=== PATIENT | male | born 1935 | race Caucasian/White ===

== ENCOUNTER → 2017-03-28 | Outpatient (CLI) | payer MEDICARE, BC ==
[2017-03-28 09:59] LABS: Blood Urea Nitrogen 17 mg/dL (9-20); Non-African American GFR(MDRD) >60 (>60 ml/min/1.73 sqM)
--- NOTE | 2017-03-28 11:58 | XR ---
EXAMINATION TYPE: XR chest 2V DATE OF EXAM: 03/28/2017 COMPARISON: 09/11/2010 HISTORY: Shortness of breath TECHNIQUE: Frontal and lateral views of the chest are obtained. FINDINGS: Scattered senescent parenchymal changes noted. Hyperinflation compatible with COPD. No evidence for infiltrate. No evidence for atelectasis. Heart size is stable. Mediastinal structures are stable and grossly unremarkable. No evidence for hilar prominence. Degenerative changes dorsal spine. IMPRESSION: 1. No evidence for acute pulmonary disease.
--- NOTE | 2017-03-28 12:07 | CT ---
EXAMINATION TYPE: CT brain wo/w con DATE OF EXAM: 03/28/2017 COMPARISON: NONE HISTORY: near syncope CT DLP: 2108.4mGycm CONTRAST: CT scan of the head is performed without and with IV Contrast, patient injected with 100 mL of Omnipa que 300. Unenhanced followed by contrast enhanced CT of the brain is submitted for evaluation. The ventricles are midline. [id number] generalized atrophic change. Septum pellucidum and vergae. There is n o evidence for intracranial hemorrhage or extra-axial collection. No mass effects are identified. V isualized bony calvarium is intact. Contrast is administered and no enhancing lesions are detected. No pathologic enhancement is identified. If symptoms persist consider MRI. IMPRESSION: 1. No acute intracranial process or enhancing lesion seen.
--- NOTE | 2017-03-28 12:47 | ECHOF ---
Referral Reason:R5 syncope MEASUREMENTS -------- HEIGHT: 185.4 cm WEIGHT: 87.1 kg BP: 175/75 RVIDd: 2.9 cm (< 3.3) IVSd: 1.2 cm (0.6 - 1.1) LVIDd: 4.4 cm (3.9 - 5.3) LVPWd: 1.2 cm (0.6 - 1.1) IVSs: 1.5 cm LVIDs: 2.9 cm LVPWs: 1.6 cm LA Diam: 3.2 cm (2.7 - 3.8) LAESV Index (A-L): 29.10 ml/m Ao Diam: 3.9 cm (2.0 - 3.7) AV Cusp: 2.1 cm (1.5 - 2.6) MV EXCURSION: 13.991 mm (> 18.000) MV EF SLOPE: 49 mm/s (70 - 150) EPSS: 0.6 cm MV E Brent: 0.94 m/s MV DecT: 381 ms MV A Brent: 1.12 m/s MV E/A Ratio: 0.84 AR PHT: 713 ms RAP: 5.00 mmHg RVSP: 28.56 mmHg FINDINGS -------- Sinus rhythm. This was a technically good study. The left ventricular size is normal. There is borderline concentric left ventricular hypertrophy. Overall left ventricular systolic function is normal with, an EF between 55 - 60 %. The right ventricle is normal in size. LA is midly dilated 29-33ml/m2. The right atrium is normal in size. There is mild aortic valve sclerosis. Trace to mild aortic regurgitation. The mitral valve leaflets are mildly thickened. Mild mitral regurgitation is present. Mild tricuspid regurgitation present. Right ventricular systolic pressure is normal at < 35 mmHg. There is no pulmonic regurgitation present. The aortic root is dilated measuring 3.9cm. Normal inferior vena cava with normal inspiratory collapse consistent with estimated right atrial pressure of 5 mmHg. There is no pericardial effusion. CONCLUSIONS -------- 1. Sinus rhythm. 2. Mild tricuspid regurgitation present. 3. Right ventricular systolic pressure is normal at < 35 mmHg. 4. There is no pulmonic regurgitation present. 5. The aortic root is dilated measuring 3.9cm. 6. Normal inferior vena cava with normal inspiratory collapse consistent with estimated right atrial pressure of 5 mmHg. 7. There is no pericardial effusion. 8. This was a technically good study. 9. There is borderline concentric left ventricular hypertrophy. 10. Overall left ventricular systolic function is normal with, an EF between 55 - 60 %. 11. LA is midly dilated 29-33ml/m2. 12. There is mild aortic valve sclerosis. 13. Trace to mild aortic regurgitation. 14. The mitral valve leaflets are mildly thickened. 15. Mild mitral regurgitation is present. TOUR LEADER: Dena Allison RDCS
--- NOTE | 2017-03-30 09:47 | EEG ---
DATE OF EE03/28/2017 REFERRING PHYSICIAN: Dr. Schrader INTERPRETING PHYSICIAN: Dr. Poli Enamorado ELECTROENCEPHALOGRAPHIC EXAMINATION REPORT: INDICATIONS FOR EXAMINATION: This patient is an 81-year-old male being evaluated for episodes of difficulty reading. Patient also with mild confusion. AGE: 81. EEG FINDINGS: A routine 21-channel, awake digital EEG recording was accomplished utilizing the 10-20 International System with bipolar and referential montages. The background activity in the most alert, resting state consists of a low to medium amplitude, fairly well developed and well sustained 6 to 7 Hz activity over the posterior head regions. This posterior rhythm attenuates to eye opening. There is a small amount of low amplitude 18-20 Hz beta activity seen maximally over the anterior head regions. Muscle and movement artifact was observed on a few occasions during the tracing. Hyperventilation was not performed. Photic stimulation at flash frequencies of 2 to 30 Hz produced a minimal occipital driving response. No epileptiform discharges were seen. IMPRESSION: This EEG is mildly abnormal in a diffuse fashion due to slight slowing of the EEG background. The EEG failed to reveal any focal, lateralized, or epileptiform abnormalities. Clinical correlation is recommended. [facility]
== END | disposition home or self-care (01) ==
LOC: NEUROMAIN 09:20
PROVIDERS: ATTEND Family Medicine
DX: R55 Syncope and collapse (principal)
CPT/HCPCS: 95819; 93306; 82565; 84520; 71020; 70470; 36415; Q9967

== ENCOUNTER → 2017-09-02 | Outpatient (CLI) | payer MEDICARE, BC ==
--- NOTE | 2017-09-02 17:07 | US ---
EXAMINATION TYPE: US carotid duplex BILAT DATE OF EXAM: 09/02/2017 COMPARISON: NONE CLINICAL HISTORY: 81-year-old male G45.9 Transient ischemic attack. Dizziness. TECHNIQUE: Carotid duplex ultrasound examination. Indirect Doppler criteria was utilized. FINDINGS: Willoughby scale images demonstrate mild to moderate atherosclerotic change at both bifurcations. EXAM MEASUREMENTS: RIGHT: Peak Systolic Velocity (PSV) cm/sec ----- Right CCA: 77.9 ----- Right ICA: 130.2 ----- Right ECA: 172.6 ICA/CCA ratio: 1.7 RIGHT: End Diastole cm/sec ----- Right CCA: 8.1 ----- Right ICA: 18.7 ----- Right ECA: 11.0 LEFT: Peak Systolic Velocity (PSV) cm/sec ----- Left CCA: 78.8 ----- Left ICA: 234.7 ----- Left ECA: 90.1 ICA/CCA ratio: 3.0 LEFT: End Diastole cm/sec ----- Left CCA: 10.1 ----- Left ICA: 37.5 ----- Left ECA: 11.1 VERTEBRALS (direction of flow): Right Vertebral: Antegrade Left Vertebral: Antegrade Rhythm: Normal Assistant Grocery Store Manager notes: Mild/moderate amount of plaque visualized bilaterally. Elevated velocities visuali zed in the right proximal ICA, left proximal, mid, distal ICA. IMPRESSION: 1. Measurements suggest moderate (50-69%), possible severe (> 70%) atherosclerotic narrowing at the l eft ICA. 2. There could be mild to moderate narrowing at the right ICA. 3. Further evaluation with CT angiography can be considered. Criteria for Assigning % of Stenosis / Diameter reduction (Estimation based on the indirect measurements of the internal carotid artery velocities (ICA PSV). 1. Normal (no stenosis)=ICA PSV < 125 cm/s: ratio < 2.0: ICA EDV<40 cm/s. 2. Less than 50% stenosis=ICA PSV < 125 cm/s: ratio < 2.0: ICA EDV<40 cm/s. 3. 50 to 69% stenosis=ICA PSV of 125 to 230 cm/s: ration 2.0 ? 4.0: ICA EDV 40-100 cm/s. 4. Greater than 70% stenosis to near occlusion= ICA PSV > 230 cm/s: ratio > 4.0: ICA EDV > 100 cm/s. 5. Near occlusion= ICA PSV velocities may be low or undetectable: variable ratio and ICA EDV. 6. Total occlusion=unable to detect flow.
== END | disposition home or self-care (01) ==
LOC: RADUSWWP 13:31
PROVIDERS: ATTEND Family Medicine
DX: G45.9 Transient cerebral ischemic attack, unspecified (principal)
CPT/HCPCS: 93880

== ENCOUNTER → 2017-09-11 | Outpatient (CLI) | payer MEDICARE, BC ==
--- NOTE | 2017-09-11 14:09 | MR ---
EXAMINATION TYPE: MR brain wo con DATE OF EXAM: 09/11/2017 COMPARISON: CT dated 03/28/2017. HISTORY: Transient cerebral ischemic attack, memory loss TECHNIQUE: Multiplanar, multisequence images of the brain and brainstem is performed without intravenous contras t. FINDINGS: Diffusion weighted images demonstrate no evidence of a recent infarct or other diffusion ab normality. Incidental note is made of a cavum septum pellucidum et verge. There is no extra-axial fl uid collection. Scattered foci of periventricular and subcortical T2/flair hyperintensities are seen, most compatible with sequela of chronic microangiopathy. This is mild to moderate burden given the p atient's age. Multiple prominent perivascular spaces are seen inferior to the basal ganglia. The harleen tricular system and cisternal spaces are symmetrically prominent compatible with age-related mild los s. Midline structures demonstrate normal morphology. Incidental mode is made of a 6 mm pineal gland cyst . The craniocervical junction appears within normal limits. The globes are intact. Left ocular lenses surgically absent. Major intracranial flow voids are maintained. Moderate amount of fluid is seen within the right mastoid air cells and small amount of fluid within the left mastoid air cells. Mild mucosal thickening within the maxillary sinuses and moderate ethmoid mucosal thickening as well as mild frontal sinus mucosal thickening are seen. Sphenoid sinuses remai n well aerated. IMPRESSION: 1. No evidence of acute infarct, midline shift or mass effect. 2. Mild to moderate burden nonspecific white matter change, likely on the basis of chronic microangio jelani. 3. Moderate paranasal sinus disease and fluid within the mastoid air cells. Correlate clinically for mastoid pain to further evaluate for mastoiditis. 4. 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
== END | disposition home or self-care (01) ==
LOC: RADMRIMAIN 13:01
PROVIDERS: ATTEND Family Medicine
DX: R90.82 White matter disease, unspecified (principal); E34.8 Other specified endocrine disorders; Z86.73 Personal history of transient ischemic attack (TIA), and cerebral infarction without residual deficits
CPT/HCPCS: 70551

== ENCOUNTER → 2017-10-20 | Outpatient (CLI) | payer MEDICARE, BC ==
[2017-10-20 13:14] LABS: Anion Gap 10 mmol/L; Blood Urea Nitrogen 23 mg/dL (9-20); Calcium 9.9 mg/dL (8.4-10.2); Carbon Dioxide 28 mmol/L (22-30); Chloride 101 mmol/L (98-107); Glucose 96 mg/dL (74-99); Potassium 4.8 mmol/L (3.5-5.1); Sodium 139 mmol/L (137-145)
[2017-10-20 19:04] LABS: Vitamin D 25 Hydroxy 17.8 ng/mL (30.0-100.0)
== END | disposition home or self-care (01) ==
LOC: LABWHC1 12:04
PROVIDERS: ATTEND Psychiatry & Neurology Neurology
DX: R41.3 Other amnesia (principal)
CPT/HCPCS: 36415; 80048; 82306; 82607

== ENCOUNTER → 2017-10-29 | Outpatient (CLI) | payer MEDICARE, BC ==
--- NOTE | 2017-10-29 17:22 | CT ---
EXAMINATION TYPE: CT angio neck DATE OF EXAM: 10/29/2017 COMPARISON: NONE HISTORY: 82-year-old male Carotid stenosis of left ICA TECHNIQUE: Contiguous axial scanning of the neck performed with IV Contrast, patient injected with 65 mL of Omnipaque 350. Coronal/sagittal MIP reconstructions performed. 3-D reconstructions generated o n a dedicated independent workstation. CT DLP: 520 mGycm Automated exposure control for dose reduction was used. 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 There is conventional arch vessel branching anatomy with mild atherosclerotic calcifications of the proximal great vessels. Uurg-jh-yogoepis atherosclerotic narrowing at the origin of the right vertebral artery. There may be a moderate atherosclerotic narrowing at the origin of the left vertebral artery with focal tortuosity of the proximal aspect of the vertebral artery. The right common carotid artery is patent. Mild atelectatic calcifications in the upper common caroti d artery. Moderate arthroscopic calcifications at the right carotid bifurcation and within the caroti d bulb. Changes result in a borderline moderate narrowing at the carotid bulb (approximately 53% sten osis). The bifurcation is located approximately 3.8 cm below the angle of the mandible. There is moderate atherosclerotic change at the left carotid bifurcation and carotid bulb but with ci rcumferential plaque at the proximal left ICA causing a severe, greater than 70% focal stenosis just above the level of the carotid bulb. The bifurcation is located approximately 4.7 cm below the angle of the mandible. IMPRESSION: 1. MODERATE ATHEROSCLEROTIC CHANGE AT BOTH BIFURCATIONS. THERE IS CIRCUMFERENTIAL PLAQUE CAUSING A SE KRYSTAL (GREATER THAN 70%) FOCAL STENOSIS OF THE PROXIMAL LEFT ICA JUST ABOVE THE CAROTID BULB. 2. BORDERLINE MODERATE (APPROXIMATELY 53%) STENOSIS OF THE RIGHT CAROTID BULB. 3. MILD TO MODERATE ATHEROSCLEROTIC NARROWING AT THE ORIGIN OF THE RIGHT VERTEBRAL ARTERY AND PROBABL Y MODERATE AT THE ORIGIN OF THE LEFT VERTEBRAL ARTERY. 4. 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
== END | disposition home or self-care (01) ==
LOC: RADCTMAIN 16:20
PROVIDERS: ATTEND Psychiatry & Neurology Neurology
DX: I65.23 Occlusion and stenosis of bilateral carotid arteries (principal); I65.03 Occlusion and stenosis of bilateral vertebral arteries
CPT/HCPCS: 70498; Q9967

== ENCOUNTER → 2017-12-11 | Outpatient (CLI) | payer MEDICARE, BC ==
--- NOTE | 2017-12-11 20:37 | MR ---
EXAMINATION TYPE: MR brain wo/w con DATE OF EXAM: 12/11/2017 COMPARISON: 09/11/2017 HISTORY: 82-year-old male Memory Loss, cerebral infarction due to unspecified occlusion. TECHNIQUE: Multiplanar, multisequence images of the brain and brainstem were acquired before and aft er administration of 9 mL IV Gadavist. Diffusion weighted imaging is performed. FINDINGS: No evidence for acute infarction, hemorrhage, mass, mass effect, midline shift, herniation, effacemen t of basal cisterns, or extra-axial fluid collection. Moderate generalized supratentorial volume loss again seen. No hydrocephalus. There is normal variati on with persistent cavum septum pellucidum. Major intracranial flow voids are intact. T2/FLAIR weighted sequences show similar mild to moderate patchy white white matter change especially in the periventricular and deep white matter regions and a few scattered foci in the subcortical reg ion suggestive right temporal lobe. Midline structures demonstrate normal morphology. 9 mm pineal gland cyst again incidentally noted. T he craniocervical junction is normal. Post contrast images demonstrate no evidence of pathologic enhancement. Dural venous sinuses are pat ent. Moderate mucosal thickening persists throughout the ethmoid air cells, maxillary sinuses, and frontal sinuses. Trapped fluid within the right greater than left mastoid air cells redemonstrated. IMPRESSION: 1. Stable moderate generalized atrophy. Also, stable chronic T2 bright white matter change with mild- to-moderate overall burden, nonspecific, likely relating to changes of chronic small vessel ischemic disease. 2. No acute intracranial abnormality or abnormal enhancing lesion seen. 3. Continued moderate chronic pansinusitis. 4. Similar trapped fluid in the right greater than left mastoid air cells; correlate for any mastoid pain to exclude mastoiditis.
== END | disposition home or self-care (01) ==
LOC: RADMRIMAIN 10:04
PROVIDERS: ATTEND Psychiatry & Neurology Neurology
DX: G31.9 Degenerative disease of nervous system, unspecified (principal); R90.82 White matter disease, unspecified; I63.232 Cerebral infarction due to unspecified occlusion or stenosis of left carotid arteries
CPT/HCPCS: 82565; 70553; 36415; A9581

== ENCOUNTER → 2019-11-09 | Outpatient (CLI) | payer MEDICARE, BC ==
--- NOTE | 2019-11-10 09:00 | ECHOF ---
Referral Reason:R07.9 atypical chest pain MEASUREMENTS -------- HEIGHT: 185.4 cm WEIGHT: 94.3 kg BP: RVIDd: 3.4 cm (< 3.3) IVSd: 1.6 cm (0.6 - 1.1) LVIDd: 3.3 cm (3.9 - 5.3) LVPWd: 1.5 cm (0.6 - 1.1) IVSs: 2.0 cm LVIDs: 1.8 cm LVPWs: 2.0 cm LAESV Index (A-L): 32.87 ml/m Ao Diam: 3.8 cm (2.0 - 3.7) AV Cusp: 2.5 cm (1.5 - 2.6) MV EXCURSION: 12.842 mm (> 18.000) MV EF SLOPE: 95 mm/s (70 - 150) EPSS: 0.5 cm MV E Brent: 0.76 m/s MV DecT: 337 ms MV A Brent: 1.24 m/s MV E/A Ratio: 0.61 RAP: 5.00 mmHg RVSP: 20.98 mmHg FINDINGS -------- Sinus rhythm. This was a technically good study. The left ventricular size is normal. There is moderate concentric left ventricular hypertrophy. O verall left ventricular systolic function is normal with, an EF between 55 - 60 %. The diastolic fi lling pattern is normal for the age of the patient 12.81. The right ventricle is mildly enlarged. LA is midly dilated 29-33ml/m2. The right atrial size is normal. Interatrial and interventricular septum intact. The aortic valve is trileaflet and appears structurally normal. There is mild aortic valve sclerosi s. Trace amount of aortic regurgitation. There is no evidence of aortic stenosis. Mild mitral annular calcification present. Mild mitral regurgitation is present. Mild tricuspid regurgitation present. There is no evidence of pulmonary hypertension. The right v entricular systolic pressure, as measured by Doppler, is 20.98mmHg. There is no pulmonic regurgitation present. The aortic root size is normal. IVC Not well visulized. There is no pericardial effusion. CONCLUSIONS -------- 1. Sinus rhythm. 2. This was a technically good study. 3. The left ventricular size is normal. 4. There is moderate concentric left ventricular hypertrophy. 5. Overall left ventricular systolic function is normal with, an EF between 55 - 60 %. 6. The diastolic filling pattern is normal for the age of the patient 12.81 7. The right ventricle is mildly enlarged. 8. LA is midly dilated 29-33ml/m2. 9. The right atrial size is normal. 10. Interatrial and interventricular septum intact. 11. The aortic valve is trileaflet and appears structurally normal. 12. There is mild aortic valve sclerosis. 13. Trace amount of aortic regurgitation. 14. There is no evidence of aortic stenosis. 15. Mild mitral annular calcification present. 16. Mild mitral regurgitation is present. 17. Mild tricuspid regurgitation present. 18. There is no evidence of pulmonary hypertension. 19. The right ventricular systolic pressure, as measured by Doppler, is 20.98mmHg. 20. There is no pulmonic regurgitation present. 21. The aortic root size is normal. 22. IVC Not well visulized. 23. There is no pericardial effusion. LAW FIRM CONSULTANT: Dena Allison RDCS
--- NOTE | 2019-11-10 11:33 | EST ---
EXERCISE STRESS AGE: 84 SEX: Male HT: 73" WT: 208 pounds PROTOCOL: Erik STAGE: I DURATION OF EXERCISE: 3 minutes HEART RATE REST: 68 BLOOD PRESSURE REST: 165/84 MAXIMUM HEART RATE ACHIEVED: 103 MAXIMUM BLOOD PRESSURE: 182/75 85% MPHR: 114 100% MPHR: 134 METS: 4.4 INDICATIONS: Atypical chest pain. CLINICAL INFORMATION: Exercise stress study is performed. Patient was exercised for a total period of 3 minutes. The peak heart rate of 103 was achieved. Maximum blood pressure of 182/75 mmHg was noted. Test was terminated because the patient got tired. The patient did not achieve 85% of the age predicted heart rate. The resting EKG shows normal sinus rhythm with normal UT interval and QRS duration and normal ST-T waves. No ST-segment depression suggestive of ischemia is noted. FINAL IMPRESSION: 1. There is no evidence of any ST-segment depression to suggest ischemia up to the 75% of the age predicted heart rate. 2. Patient's exercise tolerance is below average. MMODL / IJN: [id number] /
== END | disposition home or self-care (01) ==
LOC: RADNMMAIN 10:15
PROVIDERS: ATTEND Family Medicine
DX: I08.3 Combined rheumatic disorders of mitral, aortic and tricuspid valves (principal)
CPT/HCPCS: 93017; 93306

== ENCOUNTER 2020-09-14 15:28 | Inpatient (IN) | payer MEDICARE, BC ==
[2020-09-14] MEDS ORDERED: SODIUM CHLORIDE 0.9% 500 ML 500 ML IV STA (15:42)
[2020-09-14 15:49] LABS: Glucose,Whole Blood 114 mg/dL (75-99)
--- NOTE | 2020-09-14 15:58 | ED ---
General Adult HPI - General Chief complaint: Neuro Symptoms/Deficit Stated complaint: poss stoke/40mins Time Seen by Provider: 09/14/20 15:40 Source: patient, RN notes reviewed, old records reviewed Mode of arrival: ambulatory Limitations: no limitations - History of Present Illness Initial comments: 84-year-old male presenting for evaluation of confusion, slurred speech and difficulty finding words. Symptoms began 40 minutes prior to arrival at appr oximately 1500. He is accompanied by his son who does state that his symptoms have improved since the onset. He denied any limb weakness or numbness. Denied headache. No anticoagulation. He denies any facial numbness or weakness. Patient self has no complaints, no chest pain, no dyspnea, no fever. - Related Data Home Medications Medication Instructions Recorded Confirmed Acetaminophen Tab [Tylenol] 325 mg PO HS 09/14/20 09/14/20 Ascorbic Acid [Vitamin C] 500 mg PO DAILY 09/14/20 09/14/20 Aspirin EC [Ecotrin Low Dose] 81 mg PO DAILY 09/14/20 09/14/20 Aspirin EC [Ecotrin Low Dose] 81 mg PO ONCE PRN 09/14/20 09/14/20 Cholecalciferol [Vitamin D3 (25 1,000 unit PO DAILY 09/14/20 09/14/20 Mcg = 1000 Iu)] Fish Oil/Dha/Epa [Fish Oil 1,200 1 cap PO DAILY 09/14/20 09/14/20 mg Fish Oil] Melatonin 3 mg PO HS 09/14/20 09/14/20 Multivit-Min/FA/Lycopen/Lutein 0.5 tab PO DAILY 09/14/20 09/14/20 [Centrum Silver Men Tablet] Xanthium /Bilberry Extract 1 cap PO DAILY 09/14/20 09/14/20 diphenhydrAMINE HCL [Benadryl] 50 mg PO DAILY PRN 09/14/20 09/14/20 Allergies Allergy/AdvReac Type Severity Reaction Status Date / Time No Known Allergies Allergy Verified 09/14/20 16:32 Review of Systems ROS Statement: Those systems with pertinent positive or pertinent negative responses have been documented in the HPI. ROS Other: All systems not noted in ROS Statement are negative. Past Medical History Past Medical History: Cancer, CVA/TIA History of Any Multi-Drug Resistant Organisms: None Reported Additional Past Surgical History / Comment(s): bladder biopsy Past Psychological History: Anxiety Smoking Status: Former smoker Past Alcohol Use History: Occasional Past Drug Use History: None Reported General Exam Limitations: no limitations General appearance: alert, in no apparent distress Head exam: Present: atraumatic, normocephalic Eye exam: Present: normal appearance, PERRL ENT exam: Present: mucous membranes dry Neck exam: Present: normal inspection Respiratory exam: Present: normal lung sounds bilaterally. Absent: respiratory distress Cardiovascular Exam: Present: regular rate, normal rhythm GI/Abdominal exam: Present: soft. Absent: distended, tenderness, guarding Extremities exam: Present: normal inspection, normal capillary refill. Absent: pedal edema Neurological exam: Present: alert, oriented X3, CN II-XII intact. Absent: motor sensory deficit (NIH is 0 at the time my initial evaluation) Psychiatric exam: Present: normal affect, normal mood Skin exam: Present: warm, dry, intact. Absent: cyanosis, diaphoretic Course Vital Signs 09/14/20 09/14/20 09/14/20 15:31 16:00 16:15 Temperature 99.3 F Pulse Rate 81 68 62 Respiratory 20 18 18 Rate Blood Pressure 177/73 157/75 172/77 O2 Sat by Pulse 97 98 98 Oximetry 09/14/20 09/14/20 09/14/20 16:30 16:45 17:00 Temperature Pulse Rate 61 60 61 Respiratory 18 16 18 Rate Blood Pressure 184/84 173/88 179/81 O2 Sat by Pulse 97 97 97 Oximetry - Reevaluation(s) Reevaluation #1: 09/14/20 17:14 Patient remains NIH of 0 EKG Findings - EKG Comments: EKG Findings:: EKG: Normal sinus rhythm, rate 64, MA interval 196, QRS duration 84, QTC 416, artifact in V1 and V2, Medical Decision Making - Medical Decision Making 84-year-old male presenting with dysarthria, aphasia which is resolved at the time of arrival. He is taken to CT as a code stroke. CT is negative for intrac ranial hemorrhage, patient given aspirin and IV fluid. He has a CT angiography which is negative for intracranial occlusion, no aneurysm, does show stenosis in the bilateral carotid arteries which is known to this patient. He remains in NIH of 0 suggestive of a TIA. He will be admitted for further evaluation including neurology consultation, MRI, echo. - Lab Data Result diagrams: 09/14/20 15:56 09/14/20 15:56 Lab Results 09/14/20 09/14/20 09/14/20 Range/Units 15:46 15:56 15:56 WBC 6.8 (3.8-10.6) k/uL RBC 3.81 L (4.30-5.90) m/uL Hgb 12.8 L (13.0-17.5) gm/dL Hct 36.8 L (39.0-53.0) % MCV 96.6 (80.0-100.0) fL MCH 33.7 (25.0-35.0) pg MCHC 34.9 (31.0-37.0) g/dL RDW 12.8 (11.5-15.5) % Plt Count 199 (150-450) k/uL MPV 6.9 Neutrophils % 69 % Lymphocytes % 17 % Monocytes % 6 % Eosinophils % 5 % Basophils % 1 % Neutrophils # 4.7 (1.3-7.7) k/uL Lymphocytes # 1.2 (1.0-4.8) k/uL Monocytes # 0.4 (0-1.0) k/uL Eosinophils # 0.4 (0-0.7) k/uL Basophils # 0.1 (0-0.2) k/uL PT 10.1 (9.0-12.0) sec INR 0.9 (<1.2) APTT 22.7 (22.0-30.0) sec Sodium (137-145) mmol/L Potassium (3.5-5.1) mmol/L Chloride (98-107) mmol/L Carbon Dioxide (22-30) mmol/L Anion Gap mmol/L BUN (9-20) mg/dL Creatinine (0.66-1.25) mg/dL Est GFR (CKD-EPI)AfAm (>60 ml/min/1.73 sqM) Est GFR (CKD-EPI)NonAf (>60 ml/min/1.73 sqM) Glucose (74-99) mg/dL POC Glucose (mg/dL) 114 H (75-99) mg/dL POC Glu Patient Flow Coordinator ID Yolie Hall Calcium (8.4-10.2) mg/dL Total Bilirubin (0.2-1.3) mg/dL AST (17-59) U/L ALT (4-49) U/L Alkaline Phosphatase (38-126) U/L Troponin I (0.000-0.034) ng/mL Total Protein (6.3-8.2) g/dL Albumin (3.5-5.0) g/dL 09/14/20 09/14/20 Range/Units 15:56 15:56 WBC (3.8-10.6) k/uL RBC (4.30-5.90) m/uL Hgb (13.0-17.5) gm/dL Hct (39.0-53.0) % MCV (80.0-100.0) fL MCH (25.0-35.0) pg MCHC (31.0-37.0) g/dL RDW (11.5-15.5) % Plt Count (150-450) k/uL MPV Neutrophils % % Lymphocytes % % Monocytes % % Eosinophils % % Basophils % % Neutrophils # (1.3-7.7) k/uL Lymphocytes # (1.0-4.8) k/uL Monocytes # (0-1.0) k/uL Eosinophils # (0-0.7) k/uL Basophils # (0-0.2) k/uL PT (9.0-12.0) sec INR (<1.2) APTT (22.0-30.0) sec Sodium 136 L (137-145) mmol/L Potassium 4.6 (3.5-5.1) mmol/L Chloride 102 (98-107) mmol/L Carbon Dioxide 26 (22-30) mmol/L Anion Gap 8 mmol/L BUN 26 H (9-20) mg/dL Creatinine 1.04 (0.66-1.25) mg/dL Est GFR (CKD-EPI)AfAm 75 (>60 ml/min/1.73 sqM) Est GFR (CKD-EPI)NonAf 65 (>60 ml/min/1.73 sqM) Glucose 113 H (74-99) mg/dL POC Glucose (mg/dL) (75-99) mg/dL POC Glu Patient Flow Coordinator ID Calcium 9.9 (8.4-10.2) mg/dL Total Bilirubin 0.3 (0.2-1.3) mg/dL AST 27 (17-59) U/L ALT 23 (4-49) U/L Alkaline Phosphatase 73 (38-126) U/L Troponin I <0.012 (0.000-0.034) ng/mL Total Protein 7.3 (6.3-8.2) g/dL Albumin 4.2 (3.5-5.0) g/dL Critical Care Time Critical Care Time: Yes Total Critical Care Time: 35 Disposition Clinical Impression: Transient cerebral ischemia Disposition: ADMITTED IP TO THIS [facility] Condition: Stable Is patient prescribed a controlled substance at d/c from ED?: No Referrals: Alan Schrader DO [Primary Care Provider] - 1-2 days Decision to Admit Reason: Admit from EC Decision Date: 09/14/20 Decision Time: 17:15
[2020-09-14 16:03] LABS: Basophils # (A) 0.1 k/uL (0-0.2); Basophils % (A) 1 %; Eosinophils # (A) 0.4 k/uL (0-0.7); Eosinophils % (A) 5 %; HCT 36.8 % (39.0-53.0); HGB 12.8 gm/dL (13.0-17.5); Lymphocytes # (A) 1.2 k/uL (1.0-4.8); Lymphocytes % (A) 17 %; MCH 33.7 pg (25.0-35.0); MCHC 34.9 g/dL (31.0-37.0); MCV 96.6 fL (80.0-100.0); Mean Platelet Volume 6.9; Monocytes # (A) 0.4 k/uL (0-1.0); Monocytes % (A) 6 %; Neutrophils # (A) 4.7 k/uL (1.3-7.7); Neutrophils % (A) 69 %; Platelet Count 199 k/uL (150-450); RBC 3.81 m/uL (4.30-5.90); RDW 12.8 % (11.5-15.5); WBC 6.8 k/uL (3.8-10.6)
--- NOTE | 2020-09-14 16:11 | CT ---
EXAMINATION TYPE: CT brain wo con for TPA DATE OF EXAM: 09/14/2020 COMPARISON: 03/28/2017 HISTORY: 84-year-old male Difficulty with speech. History of TIA. TECHNIQUE: Examination was done in axial plane without intravenous contrast. Coronal and sagittal r econstructions performed. CT DLP: 1161.8 mGycm Automated exposure control for dose reduction was used. FINDINGS: There is no evidence of acute intracranial hemorrhage, acute ischemic changes, mass, mass-effect, or extra-axial fluid collection. There is no effacement of cerebral sulci or basal subarachnoid cister ns. There is no hydrocephalus. There is no midline shift. Willoughby-white matter distinction is preserv ed. Moderate generalized supratentorial volume loss Some air within the superior sagittal sinus. Normal variation persistent CSP. Kfry-[id number]-[id number] white matter hypodensities in both cerebral hemispheres. Old lacunar infarct left basal ganglia. Moderate mucosal thickening within the ethmoid air cells. Mild mucosal thickening right frontal sinu s. Small amount of fluid within the inferior right mastoid air cells. Orbits and globes are intact. IMPRESSION: 1. Moderate cerebral atrophy and changes of chronic small vessel ischemic disease. 2. Some air within the superior sagittal sinus may have been introduced during peripheral line placem ent. Correlate to exclude IVDA. Otherwise, no acute intracranial abnormality seen. 3. Moderate chronic ethmoid sinus disease. Some trapped fluid in the inferior right mastoid air cells . Correlate for any mastoid pain to exclude mastoiditis.
[2020-09-14 16:16] LABS: INR 0.9 (<1.2); Partial Thromboplastin Time 22.7 sec (22.0-30.0); Prothrombin Time 10.1 sec (9.0-12.0)
[2020-09-14 16:20] LABS: Albumin 4.2 g/dL (3.5-5.0); Calcium 9.9 mg/dL (8.4-10.2); Potassium 4.6 mmol/L (3.5-5.1); Total Bilirubin 0.3 mg/dL (0.2-1.3); Total Protein 7.3 g/dL (6.3-8.2)
[2020-09-14] MEDS ORDERED: SODIUM CHLORIDE 0.9% 1,000 ML IV SCH (17:00)
--- NOTE | 2020-09-14 17:04 | CT ---
EXAMINATION TYPE: CT angio head neck DATE OF EXAM: 09/14/2020 COMPARISON: Correlation CT brain same day HISTORY: 84-year-old male Difficulty with speech. History of TIA. TECHNIQUE: Contiguous axial scanning of the head and neck performed with IV Contrast, patient injecte d with 65 mL of Isovue 370. Coronal/sagittal MIP reconstructions performed. CT DLP: 590.5 mGycm Automated exposure control for dose reduction was used. FINDINGS: NECK: Aneurysmal ascending aorta 4.2 cm and upper descending thoracic aorta 3.4 cm. Mild emphysematous thomas ge in the upper lungs with biapical pleural-parenchymal scarring. Conventional arch vessel branching anatomy. Moderate atherosclerotic calcification of the origin of the left vertebral artery and mild on the rig ht. The vertebral arteries are otherwise patent throughout their course. The right common cardiac artery is patent. Moderate atherosclerotic change at the right bifurcation. The proximal ICA just above the bulb shows a moderate, approximately 50% stenosis. Remainder of the right ICA is patent. The left common carotid artery is patent. Moderate atherosclerotic plaque and calcification at the left bifurcation with mild, just under 50% n arrowing of the proximal left ICA above the carotid bulb. Suspect a 1 cm sebaceous cyst along the upper right paramedian anterior chest wall. Clinically correl ate. HEAD: Mild to moderate atherosclerotic calcifications right vertebral artery without significant narrowing. There is mild narrowing at the distal left vertebral artery. The basilar artery is patent. The posterior circulation is patent. Mild apical scarring calcifications within the carotid siphons without significant narrowing. The ICA s remain patent as does the remainder of the anterior circulation. No aneurysmal changes identified. IMPRESSION: NECK: 1. Moderate atherosclerotic change at both bifurcations. 2. There is moderate approximately 50% stenosis in the proximal right ICA just above the carotid bulb . 3. Mild, under 50% narrowing of the proximal left ICA. HEAD: 1. Scattered atherosclerotic calcification within the carotid siphons and right vertebral artery. Mil d atherosclerotic narrowing distal left vertebral artery. 2. No large vessel intracranial arterial occlusion, significant stenosis, or aneurysmal change is see n.
[2020-09-14] MEDS: ASPIRIN 325 MG TAB PO STA ×2 (20:04→20:09)
[2020-09-14] MEDS ORDERED: ACETAMINOPHEN TAB 325 MG TAB PO SCH (21:00)
[2020-09-14] MEDS ORDERED: MELATONIN 3 MG TABLET PO SCH (21:00)
--- NOTE | 2020-09-14 23:07 | P.HPIM ---
History of Present Illness H&P Date: 09/14/20 Chief Complaint: TIA, severe memory loss, hypertension, hyperlipidemia and h yperglycemia 84-year-old male one of Dr. Childers patient with past medical history of TIA/CVA, hypertension, hyperlipidemia and anxiety disorders who has been doing well has been living with his son since his pass. Patient developed to have episode of confusion and slurred speech and difficulty finding words. Symptoms lasted for about 40 minutes he ended up coming to the emergency depa rtment by ambulance with his family at a time was seen was quite bit confused does not remember why his in the hospital he developed apparently to have severe generalized weakness numbness not been able to express himself with severe abnormal balance and gait not been able to ambulate family ended up calling 911 and brought to demurs department at [facility] where was seen and evaluated his brain CT shows moderate cerebral atrophy with chronic small vessel disease with chronic change consistent with small vessel disease some air within the superior sagittal sinus May been introduced during peripheral line placement along with moderate chronic ethmoid sinus and drainage. CTA of the neck shows moderate atherosclerotic change in both carotid artery with approximately 50% blockage. That value showed normal CBC CMP PT/INR. Patient was admitted to the hospital, will be seen neurology, was start PTOT resume home meds control his blood pressure to keep systolic below 1:30 also was start social service for possible need for help. Review of Systems CONSTITUTIONAL: Well-developed no acute respiratory distress. EYES: No icterus sclerae, no conjunctivitis. EARS, NOSE, MOUTH, THROAT, and FACE: No sore throat, lymphadenopathy, carotid bruits or deformity. RESPIRATORY: Mild shortness of breath no cough or wheezes. CARDIOVASCULAR: No CP, Palpitation, PND, Orthopnea, or angina. GASTROINTESTINAL: No Abd pain, Nausea or vomiting, no Diarrhea or constipation, No GI Bleed, no distention or masses. GENITOURINARY: Negative for Hematuria or UTI, no kidney stones. INTEGUMENT/BREAST: Negative for any muscular injury with mild osteoarthritis.. HEMATOLOGIC/LYMPHATIC: Negative for bleed or purpura. Mild anemia MUSCULOSKELTAL: Negative for Myalgia or arthralgia. Generalized arthralgia NEURLOGICAL: No LOC, Sz or syncope, blurred vision dizziness or abnormality.. BEHAVIORAL/PSYCH: Negative. ENDOCRINE: Negative.CONSTITUTIONAL: Well-developed no acute respiratory distress. Past Medical History Past Medical History: Cancer, CVA/TIA History of Any Multi-Drug Resistant Organisms: None Reported Additional Past Surgical History / Comment(s): bladder biopsy Past Psychological History: Anxiety Smoking Status: Former smoker Past Alcohol Use History: Occasional Past Drug Use History: None Reported - Past Family History Father Family Medical History: Unable to Obtain Medications and Allergies Home Medications Medication Instructions Recorded Confirmed Type Acetaminophen Tab [Tylenol] 325 mg PO HS 09/14/20 09/14/20 History Ascorbic Acid [Vitamin C] 500 mg PO DAILY 09/14/20 09/14/20 History Aspirin EC [Ecotrin Low Dose] 81 mg PO DAILY 09/14/20 09/14/20 History Aspirin EC [Ecotrin Low Dose] 81 mg PO ONCE PRN 09/14/20 09/14/20 History Cholecalciferol [Vitamin D3 (25 1,000 unit PO DAILY 09/14/20 09/14/20 History Mcg = 1000 Iu)] Fish Oil/Dha/Epa [Fish Oil 1,200 1 cap PO DAILY 09/14/20 09/14/20 History mg Fish Oil] Melatonin 3 mg PO HS 09/14/20 09/14/20 History Multivit-Min/FA/Lycopen/Lutein 0.5 tab PO DAILY 09/14/20 09/14/20 History [Centrum Silver Men Tablet] Xanthium /Bilberry Extract 1 cap PO DAILY 09/14/20 09/14/20 History diphenhydrAMINE HCL [Benadryl] 50 mg PO DAILY PRN 09/14/20 09/14/20 History Allergies Allergy/AdvReac Type Severity Reaction Status Date / Time No Known Allergies Allergy Verified 09/14/20 16:32 Physical Exam Vitals: Vital Signs Temp Pulse Resp BP Pulse Ox 09/14/20 18:31 87 18 179/81 96 09/14/20 17:00 61 18 179/81 97 09/14/20 16:45 60 16 173/88 97 09/14/20 16:30 61 18 184/84 97 09/14/20 16:15 62 18 172/77 98 09/14/20 16:00 68 18 157/75 98 09/14/20 15:31 99.3 F 81 20 177/73 97 Intake and Output 09/14/20 09/14/20 09/14/20 06:59 14:59 22:59 Other: Weight 92.986 kg General Appearance: Alert, cooperative, no distress, appears stated age. Slightly confused Neck HEENT: Supple, no lymphadenopathy, no thyroid enlargement, no carotid bruits. Lungs: Clear to auscultation without crackles or wheezes no rhonchi, no deformity. Chest Wall: Chest wall normal expansion with deep inspiration no tenderness and no deformity was found on exam, no costochondral pain or discomfort. Heart: Regular rate and rhythm, S1, S2 normal, no murmur, rub or gallop. Mild arrhythmia with systolic murmur. Back: Symmetric, no curvature, ROM normal, no CVA tenderness. Abdomen: Soft, non-tender, bowel sounds active all four quadrants, no masses, no organomegaly. Extremities: Extremities normal, atraumatic, no cyanosis or edema. Generalized arthralgias especially in the knees. Pulses: 2+ and symmetric. Skin: Skin color, texture, tugor normal, no rashes or lesions. Neurologic: Alert oriented with slight confusion cranial nerves II through XII intact, significant abnormal balance and gait in the right side more than the left side. Results CBC & Chem 7: 09/14/20 15:56 09/14/20 15:56 Labs: Abnormal Lab Results - Last 24 Hours (Table) 09/14/20 09/14/20 09/14/20 Range/Units 15:46 15:56 15:56 RBC 3.81 L (4.30-5.90) m/uL Hgb 12.8 L (13.0-17.5) gm/dL Hct 36.8 L (39.0-53.0) % Sodium 136 L (137-145) mmol/L BUN 26 H (9-20) mg/dL Glucose 113 H (74-99) mg/dL POC Glucose (mg/dL) 114 H (75-99) mg/dL Assessment and Plan Assessment: 1 TIA/CVA: Still have significant memory loss still not able to express himself CT showed significant finding with small vessel disease at this point, patient be seen urology and if needed MRI of the brain be done. 2 hypertension: Continue low-salt diet for now and if needed small dose of amlodipine can be started initially. 3 hyperlipidemia: Remain on diet control. 4 severe anxiety and panic attack: Patient remain on alprazolam as needed. BPH: Watch for any urinary retention. 6 hyperglycemia: Continue patient on Accu-Chek sliding scales coverage. 7 chronic anxiety attacks on benzodiazepine as needed. 8 debility: Was start patient on PTOT. 9 mild low with iron deficiency anemia: Continue patient 10 GI prophylaxis: Patient be on Pepcid daily. CODE STATUS: Full code. Thank you Dr. ruffin for allowing me to part spit the care of few patient can be any further help to please let me know.
[2020-09-15 03:10] LABS: Cholesterol 180 mg/dL (<200); HDL Cholesterol 38 mg/dL (40-60); LDL Cholesterol,Calculated 93 mg/dL (0-99); Triglycerides 246 mg/dL (<150)
--- NOTE | 2020-09-15 08:34 | P.CNNES ---
History of Present Illness Consult date: 09/15/20 Chief complaint: slurred speech and word finding difficulty History of Present Illness: This is an 84-year-old gentleman with medical history of TIA (08/2017), hypertension, hyperlipidemia and anxiety that presented to the emergency department on 09/14/2020 for confusion, slurred speech and difficulty word finding. History was obtained from medical records since the patient cannot tell me exactly what he presented with. Patient is awake and responding appropriately but he doesn't know what he was brought here for. Per medical records the patient arrived to the emergency department at around 1528. And the symptoms of onset was about the about 40 minutes prior to arrival. Upon arrival to the ED his symptoms resolved. According to the patient he takes aspirin 81 mg sporadically. He stated that his son lives with him. It is noted that the his has and that was a result of his son living with the patient. It is reported by the primary team's note that he's been having generalized weakness, numbness and not been able to express himself with severe abnormal balance and gait and that was a result of calling 911. Stroke code was activated. Workup in the hospital consisted of: Initial vital signs: Blood pressure of 177/73, heart rate of 71, respiratory of 20, temperature of 99.3 Fahrenheit oral, pulse ox of 97% at room air. CT of the head is reported as moderate cerebral atrophy and changes of chronic small vessel ischemic disease. Some air within the superior sagittal sinus may have been introduced during the peripheral line placement. Correlate to exclude IVDA. Otherwise, no acute intracranial abnormality seen. Moderate chronic ethmoid sinus disease. Some Fluid in the inferior right mastoid air cells, correlate for any mastoid pain to exclude mastoiditis. CT angiography of the head and neck is reported as: CT of the head is reported as scattered atherosclerotic calcification within the carotid siphons and the right vertebral artery. Mild atherosclerotic narrowing distal left vertebral ar rocio. No large vessel intracranial artery occlusion, significant stenosis, or aneurysm changes seen. While that CT angiography of the neck is reported as moderate office chronic change at both bifurcation. There is moderate approximately 50% stenosis in the proximal right ICA just above the carotid bulb. Mild under 50% narrowing of the proximal left ICA. EKG is reported as normal sinus rhythm. Normal EKG. On initial presentation the patient had no leukocytosis. The patient had hemoglobin of 12.8. Initial serum glucose is 113 and that POC glucose is 114. In the ED the patient received aspirin 325 once. Patient NIH was a 0 and the patient did not get TPA because symptoms resolved. Patient received aspirin 325 once in the ED and was started on Lipitor 40 mg daily. Upon reviewing the patient's the medical record: Seems that the patient had an EEG in our facility on 03/28/2017 and 0 reported as mildly abnormal in a diffuse fashion due to slight slowing of the EEG background. The EEG felt to reveal any focal, lateralized or epileptiform activity. Patient also had MRI of the brain on 12/11/2017 and she reported as stable moderate generalized atrophy. Also stable chronic T2 bright white matter change with mild to moderate overall burden, nonspecific, likely related to changes of chronic small vessel ischemic disease. No acute intracranial abnormality or abnormal enhancing lesion seen. Continued moderate chronic paraSinusitis. Similar trapped fluid in the right greater than left mastoid air cells; correlate for any mastoid pain to exclude mastoiditis Also patient had MRI of the brain on 09/11/2017 for a transient ischemic attack and memory loss: And it was reported as no evidence of acute infarct, midline shift or mass effect. There is mild to moderate burden nonspecific white matter changes, likely on the basis of chronic microangiopathy. Moderate paranasal si nus disease and fluid within the mastoid air cell. Correlate clinically for mastoid pain to further evaluate for mastoiditis. 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 He had bilateral carotid duplex and that 09/02/2017 for a transient ischemic attack and dizziness it's reported that the patient has measurements suggest moderate 50-69%, possible severe more than 70 others carotid narrowing at the left ICA. There to be mild to moderate narrowing at the right ICA. Further evaluation with CT angiography and can be considered. Review of Systems Review of system: The 12 point system was reviewed and apparent positive and negative per HPI. Past Medical History Past Medical History: Cancer, CVA/TIA History of Any Multi-Drug Resistant Organisms: None Reported Additional Past Surgical History / Comment(s): bladder biopsy Past Psychological History: Anxiety Smoking Status: Former smoker Past Alcohol Use History: Occasional Past Drug Use History: None Reported - Past Family History Father Family Medical History: Unable to Obtain Medications and Allergies Home Medications Medication Instructions Recorded Confirmed Type Acetaminophen Tab [Tylenol] 325 mg PO HS 09/14/20 09/14/20 History Ascorbic Acid [Vitamin C] 500 mg PO DAILY 09/14/20 09/14/20 History Aspirin EC [Ecotrin Low Dose] 81 mg PO DAILY 09/14/20 09/14/20 History Aspirin EC [Ecotrin Low Dose] 81 mg PO ONCE PRN 09/14/20 09/14/20 History Cholecalciferol [Vitamin D3 (25 1,000 unit PO DAILY 09/14/20 09/14/20 History Mcg = 1000 Iu)] Fish Oil/Dha/Epa [Fish Oil 1,200 1 cap PO DAILY 09/14/20 09/14/20 History mg Fish Oil] Melatonin 3 mg PO HS 09/14/20 09/14/20 History Multivit-Min/FA/Lycopen/Lutein 0.5 tab PO DAILY 09/14/20 09/14/20 History [Centrum Silver Men Tablet] Xanthium /Bilberry Extract 1 cap PO DAILY 09/14/20 09/14/20 History diphenhydrAMINE HCL [Benadryl] 50 mg PO DAILY PRN 09/14/20 09/14/20 History Allergies Allergy/AdvReac Type Severity Reaction Status Date / Time No Known Allergies Allergy Verified 09/14/20 16:32 Physical Examination - Vital Signs Vital Signs: Vital Signs Temp Pulse Resp BP Pulse Ox 09/14/20 16:45 60 16 173/88 97 09/14/20 16:30 61 18 184/84 97 09/14/20 16:15 62 18 172/77 98 09/14/20 16:00 68 18 157/75 98 09/14/20 15:31 99.3 F 81 20 177/73 97 Intake and Output 09/14/20 09/14/20 09/14/20 06:59 14:59 22:59 Other: Weight 92.986 kg GENERAL: The patient is lying in bed and is not in acute distress. CHEST: The heart rate is regular rate rhythm. No murmurs to auscultation. No carotid bruit bilaterally. LUNG: Clear to auscultation bilaterally no wheezing noted throughout. Not labored breathing. ABDOMEN/GI: Bowel sounds present in all 4 quadrants. No tenderness to palpation throughout. NEUROLOGICAL: Higher mental function: The patient is awake, alert, oriented to self, place and time. Patient is following commands. No aphasia and no neglect. Cranial nerves: The pupils are round, equal and reactive to light and accommodation. Visual arellano are full to confrontation throughout. Extraocular movement is intact no nystagmus is noted. Facial sensation is normal to touch throughout. The facial strength is normal throughout. Hearing is mildly to moderately decreased to hand rubs bilaterally. Tongue is midline and moved [id number] without any difficulty. No dysarthria is noted. Shoulder shrug is normal bilaterally. Motor: Gait is normal with normal arm swings. The strength is 5 over 5 throughout. Normal tone and bulk. Cerebellum: Normal finger to nose bilaterally. Sensation: Sensation is normal to touch throughout. Reflexes (right/left): 2+ throughout except ankles are 1+ bilaterally. Plantars are downgoing bilaterally. Results AST 27 ALT of 23. Initial sodium was 136. Lipid Panel: Triglyceride 246, cholestrol 180, LDL 93 and HDL 38. Coagulation study: PT of 10.1, INR 0.9, PTT of 22.7. - Laboratory Findings CBC and BMP: 09/14/20 15:56 09/14/20 15:56 Abnormal Lab Findings: Abnormal Labs 09/14/20 09/14/20 09/14/20 15:46 15:56 15:56 RBC 3.81 L Hgb 12.8 L Hct 36.8 L Sodium 136 L BUN 26 H Glucose 113 H POC Glucose (mg/dL) 114 H Assessment and Plan Assessment: This is an 84-year-old gentleman that presented to the emergency department on 09/14/2020 for confusion, slurred speech and difficulty word finding. Patient arrived to the emergency department at around 1528. And the symptoms of onset was about the about 40 minutes prior to arrival. Upon arrival to the ED his symptoms revolved. The NIH stroke scale was a 0 as a result no IV TPA was given. Transient ischemic attack (Slurred speech, word finding difficulties and gait imbalance). Moderate right internal carotid stenosis (50% per CTA) Mild left ICA stenosis (<50% per CTA) History of TIA 2017 Hypertension Hyperlipidemia Plan: * CT of the head is reported as moderate cerebral atrophy and changes of chronic small vessel ischemic disease. Some air within the superior sagittal sinus may have been introduced during the peripheral line placement. Correlate to exclude IVDA. Otherwise, no acute intracranial abnormality seen. Moderate chronic ethmoid sinus disease. Some Fluid in the inferior right mastoid air cells, correlate for any mastoid pain to exclude mastoiditis. * CT angiography of the head and neck is reported as: CT of the head is reported as scattered atherosclerotic calcification within the carotid siphons and the right vertebral artery. Mild atherosclerotic narrowing distal left vertebral artery. No large vessel intracranial artery occlusion, significant stenosis, or aneurysm changes seen. While that CT angiography of the neck is reported as moderate office chronic change at both bifurcation. There is moderate approximately 50% stenosis in the proximal right ICA just above the carotid bulb. Mild under 50% narrowing of the proximal left ICA. * MRI the brain is ordered and is pending. * Lipid Panel: Triglyceride 246, cholestrol 180, LDL 93 and HDL 38. LDL goal of TIA/strokes is less than 70 * Currently the patient is on aspirin at 325 daily (on home ASA 81mg sporadically). I discontinued the aspirin 325 and I restarted the patient on aspirin 81 as well as Plavix 75 mg. The patient to be on dual antiplatelet for 21 days and then after that he can continue aspirin 81 mg daily. Continue Lipitor 40 mg daily for secondary stroke prophylaxis. * I ordered the carotid duplex * 2-D echo is pending. * I ordered TSH and HbA1c. * Regarding the patient's ?transient confusion reported, I will order vitamin B12 and folate level. * Continue every 4 hour neuro checks * Continue cardiac monitoring * Physical therapy, occupation therapy and speech which pathology team are consulted. * Attempt to contact the family for further information later today. We will defer the rest of the medical management to the primary team. The plan was discussed with the patient and his nurse. Thank you for the consultation. Nic Nj MD Neuro-hospitalist Time with Patient: Greater than 30
--- NOTE | 2020-09-15 08:55 | MR ---
EXAMINATION TYPE: MR brain wo con DATE OF EXAM: 09/15/2020 COMPARISON: CT brain from yesterday. MRI brain September 11, 2017 HISTORY: Neuro deficit, acute, stroke suspected TECHNIQUE: Multiplanar, multisequence imaging of the brain and brainstem is performed without IV cont rast. FINDINGS: Exam is suboptimal as patient unable to hold still. Diffusion weighted images demonstrate no evidence of a recent infarct or other diffusion abnormality. There is no worrisome extra-axial fluid collection. Diffuse ventricular and sulcal prominence redemonstrated. Septum pellucidum vergae redemonstrated. Fo claude and confluent areas of T2 hyperintensity in the periventricular white matter again seen. Midline structures demonstrate normal morphology. Corpus callosal thinning is seen. The craniocervic al junction appears within normal limits. Normal vascular flow voids are present. Mild to moderate mu cosal thickening involving the ethmoid sinuses bilaterally. Mild mucosal thickening involving the fro ntal and maxillary sinuses bilaterally. Left lens is asymmetrically thinned similar to prior. Possibl e product of prior cataract surgery. Some fluid signal right mastoid air cells again seen. IMPRESSION: 1. No MRI evidence for a recent infarct. 2. Fairly moderate diffuse cerebral atrophy and chronic small vessel ischemic change redemonstrated. No significant change from recent MRI. 3. Chronic paranasal sinus disease, retained fluid right mastoid air cells redemonstrated. No signifi cant change from prior MRI.
[2020-09-15] MEDS ORDERED: CHOLECALCIFEROL 1,000 UNIT TAB PO SCH (09:00)
[2020-09-15] MEDS ORDERED: NON FORMULARY DRUG (Aspirin Ec 81 MG Tablet.Dr) PO SCH (09:00)
[2020-09-15] MEDS ORDERED: ASPIRIN 81 MG PO SCH (09:00)
[2020-09-15] MEDS ORDERED: CLOPIDOGREL 75 MG TAB PO SCH (09:00)
[2020-09-15] MEDS ORDERED: ATORVASTATIN 40 MG TAB PO SCH (09:00)
[2020-09-15] MEDS ORDERED: MULTIVITAMINS, THERA 1 EACH TAB PO SCH (09:00)
[2020-09-15] MEDS ORDERED: ASCORBIC ACID 500 MG TAB PO SCH (09:00)
--- NOTE | 2020-09-15 09:44 | US ---
EXAMINATION TYPE: US carotid duplex BILAT DATE OF EXAM: 09/15/2020 COMPARISON: CTA neck from yesterday CLINICAL HISTORY: stroke. EXAM MEASUREMENTS: RIGHT: Peak Systolic Velocity (PSV) cm/sec ----- Right CCA: 73.7 ----- Right ICA: 174.5 ----- Right ECA: 254.7 ICA/CCA ratio: 2.4 RIGHT: End Diastole cm/sec ----- Right CCA: 0.0 ----- Right ICA: 15.6 ----- Right ECA: 27.1 LEFT: Peak Systolic Velocity (PSV) cm/sec ----- Left CCA: 76.6 ----- Left ICA: 330.2 ----- Left ECA: 136.3 ICA/CCA ratio: 4.3 LEFT: End Diastole cm/sec ----- Left CCA: 19.4 ----- Left ICA: 40.9 ----- Left ECA: 10.2 VERTEBRALS (direction of flow): Right Vertebral: Antegrade Left Vertebral: Antegrade Rhythm: Normal morel scale images show moderate to severe shadowing peripheral plaque at carotid bulb level bilaterally. Increased velocities in the internal carotid arteries bilaterally greater on the left side versus right side correlate with CTA neck from one day earlier. IMPRESSION: Moderate to severe atherosclerotic changes bilaterally left greater than right, signific ant stenosis is suspected bilaterally greater on the left correlates with CTA neck. CTA neck images a re noted more sensitive in accurately detecting degree of stenosis. Criteria for Assigning % of Stenosis / Diameter reduction (Estimation based on the indirect measurements of the internal carotid artery velocities (ICA PSV). 1. Normal (no stenosis)=ICA PSV < 125 cm/s: ratio < 2.0: ICA EDV<40 cm/s. 2. Less than 50% stenosis=ICA PSV < 125 cm/s: ratio < 2.0: ICA EDV<40 cm/s. 3. 50 to 69% stenosis=ICA PSV of 125 to 230 cm/s: ration 2.0 ? 4.0: ICA EDV 40-100 cm/s. 4. Greater than 70% stenosis to near occlusion= ICA PSV > 230 cm/s: ratio > 4.0: ICA EDV > 100 cm/s. 5. Near occlusion= ICA PSV velocities may be low or undetectable: variable ratio and ICA EDV. 6. Total occlusion=unable to detect flow.
[2020-09-15 10:34] VITALS: BP 156/82; PULSE 73; RESP 17; TEMP 97.8
--- NOTE | 2020-09-15 10:50 | ECHOF ---
Referral Reason:Thrombus MEASUREMENTS -------- HEIGHT: 182.9 cm WEIGHT: 96.6 kg BP: RVIDd: 2.8 cm (< 3.3) IVSd: 1.1 cm (0.6 - 1.1) LVIDd: 4.0 cm (3.9 - 5.3) LVPWd: 1.4 cm (0.6 - 1.1) IVSs: 1.5 cm LVIDs: 3.4 cm LVPWs: 1.2 cm LA Diam: 3.1 cm (2.7 - 3.8) LAESV Index (A-L): 37.01 ml/m Ao Diam: 3.2 cm (2.0 - 3.7) AV Cusp: 2.3 cm (1.5 - 2.6) LA Diam: 3.9 cm (2.7 - 3.8) MV EXCURSION: 18.048 mm (> 18.000) MV EF SLOPE: 119 mm/s (70 - 150) EPSS: 0.5 cm MV E Brent: 0.74 m/s MV DecT: 243 ms MV A Brent: 1.26 m/s MV E/A Ratio: 0.59 RAP: 5.00 mmHg RVSP: 14.92 mmHg FINDINGS -------- Sinus rhythm. This was a technically good study. LV size, wall thickness and systolic function are normal, with an EF greater than 55%. The left harleen tricular size is normal. The right ventricle is normal in size. The right atrial size is normal. The aortic valve is trileaflet, and appears structurally normal. No aortic stenosis or regurgitation. Mild mitral regurgitation is present. Mild tricuspid regurgitation present. Right ventricular systolic pressure is normal at < 35 mmHg. There is no pulmonic regurgitation present. The aortic root size is normal. There is no pericardial effusion. CONCLUSIONS -------- 1. LV size, wall thickness and systolic function are normal, with an EF greater than 55%. 2. The left ventricular size is normal. 3. The right ventricle is normal in size. 4. The right atrial size is normal. 5. Mild mitral regurgitation is present. 6. Mild tricuspid regurgitation present. 7. There is no pulmonic regurgitation present. 8. The aortic root size is normal. 9. There is no pericardial effusion. CHEMICAL EQUIPMENT REPAIRER: Blanca Clemons RDCS
--- NOTE | 2020-09-15 10:58 | P.DS ---
Providers Date of admission: 09/14/20 17:11 Expected date of discharge: 09/15/20 Attending physician: Steven Acosta Consults: 09/14/20 17:12 Consult Physician Routine Consulting Provider: Nic Nj Consult Reason/Comments: TIA Do you want consulting provider notified?: Yes Primary care physician: Alan [facility] Course: 84-year-old male one of Dr. Childers patient with past medical history of TIA/CVA, hypertension, hyperlipidemia and anxiety disorders who has been doing well has been living with his son since his pass. Patient developed to have episode of confusion and slurred speech and difficulty finding words. Symptoms lasted for about 40 minutes he ended up coming to the emergency department by ambulance with his family at a time was seen was quite bit confused does not remember why his in the hospital he developed apparently to have severe generalized weakness numbness not been able to express himself with severe abnormal balance and gait not been able to ambulate family ended up calling 911 and brought to demurs department at [facility] where was seen and evaluated his brain CT shows moderate cerebral atrophy with chronic small vessel disease with chronic change consistent with small vessel disease some air within the superior sagittal sinus May been introduced during peripheral line placement along with moderate chronic ethmoid sinus and drainage. CTA of the neck shows moderate atherosclerotic change in both carotid artery with approximately 50% blockage. That value showed normal CBC CMP PT/INR. Patient was admitted to the hospital, will be seen neurology, was start PTOT resume home meds control his blood pressure to keep systolic below 1:30 also was start social service for possible need for help. 09/15: Patient has been seen by neurology for TIA and recommendations aspirin 81 grams daily and Plavix 75 mg. The patient to be on dual antiplatelet for 21 days and then after that he can continue aspirin 81 mg daily. Continue Lipitor 40 mg daily for secondary stroke prophylaxis. Triglycerides 246, cholesterol 180, LDL 93, HDL 38. The following tests are pending: TSH, folate, hemoglobin A1c and vitamin B12 level. Echocardiogram has been done and report is pending. Carotid ultrasound reveals moderate to severe changes bilaterally left greater than right, significant stenosis is suspected bilaterally greater on the left. Patient follows regularly with Dr. Johnson and last saw him about 3 months ago. We'll plan for outpatient follow-up with Dr. Johnson. MRI of the brain reveals no evidence of recent infarct. Fairly moderate diffuse cerebral atrophy and chronic small vessel ischemic changes redemonstrated. No significant change from recent MRI. Chronic paranasal sinus disease. Patient has been evaluated by therapies with recommendations for home without home care. Patient will be discharged home today in stable condition. Discharge diagnoses: 1 TIA 2 hypertension 3 hyperlipidemia 4 severe anxiety and panic attack 5 BPH 6 hyperglycemia 7 chronic anxiety attacks 8 debility 9 mild low with iron deficiency anemia 10 carotid artery stenosis Discharge plan: Home Impression and plan of care have been directed as dictated by the signing physician. Breanna Gates nurse practitioner acting as scribe for signing physician. Patient Condition at Discharge: Good Plan - Discharge Summary Discharge Rx Participant: No New Discharge Prescriptions: New Atorvastatin [Lipitor] 40 mg PO DAILY #30 tab Clopidogrel [Plavix] 75 mg PO DAILY #21 tab Continue diphenhydrAMINE HCL [Benadryl] 50 mg PO DAILY PRN PRN Reason: ALLERGIES Melatonin 3 mg PO HS Xanthium /Bilberry Extract 1 cap PO DAILY Cholecalciferol [Vitamin D3 (25 Mcg = 1000 Iu)] 1,000 unit PO DAILY Acetaminophen Tab [Tylenol] 325 mg PO HS Multivit-Min/FA/Lycopen/Lutein [Centrum Silver Men Tablet] 0.5 tab PO DAILY Ascorbic Acid [Vitamin C] 500 mg PO DAILY Fish Oil/Dha/Epa [Fish Oil 1,200 mg Fish Oil] 1 cap PO DAILY Aspirin EC [Ecotrin Low Dose] 81 mg PO DAILY Discontinued Aspirin EC [Ecotrin Low Dose] 81 mg PO ONCE PRN PRN Reason: Chest Pain Discharge Medication List Acetaminophen Tab [Tylenol] 325 mg PO HS 09/14/20 [History] Ascorbic Acid [Vitamin C] 500 mg PO DAILY 09/14/20 [History] Aspirin EC [Ecotrin Low Dose] 81 mg PO DAILY 09/14/20 [History] Cholecalciferol [Vitamin D3 (25 Mcg = 1000 Iu)] 1,000 unit PO DAILY 09/14/20 [History] Fish Oil/Dha/Epa [Fish Oil 1,200 mg Fish Oil] 1 cap PO DAILY 09/14/20 [History] Melatonin 3 mg PO HS 09/14/20 [History] Multivit-Min/FA/Lycopen/Lutein [Centrum Silver Men Tablet] 0.5 tab PO DAILY 09/14/20 [History] Xanthium /Bilberry Extract 1 cap PO DAILY 09/14/20 [History] diphenhydrAMINE HCL [Benadryl] 50 mg PO DAILY PRN 09/14/20 [History] Atorvastatin [Lipitor] 40 mg PO DAILY #30 tab 09/15/20 [Rx] Clopidogrel [Plavix] 75 mg PO DAILY #21 tab 09/15/20 [Rx] Follow up Appointment(s)/Referral(s): Alan Schrader DO [Primary Care Provider] - 1 Week Dominick Oneal DO [STAFF PHYSICIAN] - 2 Weeks (TIA ) Thad Johnson MD [STAFF PHYSICIAN] - 1 Week (Carotid stenosis) Discharge Disposition: HOME SELF-CARE
[2020-09-15] MEDS ORDERED: ASPIRIN 325 MG TAB PO SCH (17:13)
[2020-09-15 21:40] LABS: Hemoglobin A1C 5.9 % (4.0-6.0)
== END 2020-09-15 13:04 | disposition home or self-care (01) | DRG 69 ==
LOC: EC 15:28 → 3SCARD 17:11
PROVIDERS: ADMIT Internal Medicine Geriatric Medicine; ATTEND Internal Medicine Geriatric Medicine
DX: G45.9 Transient cerebral ischemic attack, unspecified (principal); D50.9 Iron deficiency anemia, unspecified; I65.23 Occlusion and stenosis of bilateral carotid arteries; I67.89 Other cerebrovascular disease; G31.9 Degenerative disease of nervous system, unspecified; N40.0 Benign prostatic hyperplasia without lower urinary tract symptoms; E78.5 Hyperlipidemia, unspecified; J32.2 Chronic ethmoidal sinusitis; I10 Essential (primary) hypertension; R73.9 Hyperglycemia, unspecified; F41.0 Panic disorder [episodic paroxysmal anxiety]; R53.81 Other malaise; R26.89 Other abnormalities of gait and mobility; Z79.82 Long term (current) use of aspirin; Z79.899 Other long term (current) drug therapy; Z87.891 Personal history of nicotine dependence; Z86.73 Personal history of transient ischemic attack (TIA), and cerebral infarction without residual deficits; Z87.448 Personal history of other diseases of urinary system; Z85.9 Personal history of malignant neoplasm, unspecified; Z98.890 Other specified postprocedural states
CPT/HCPCS: 36415; 70450; 70496; 70498; 70551; 80053; 80061; 82607; 82747; 83036; 84443; 84484; 85025; 85610; 85730; 93005; 93306; 93880; 99291

== ENCOUNTER → 2020-12-05 | Outpatient (CLI) | payer MEDICARE, BC ==
--- NOTE | 2020-12-05 14:08 | FL ---
EXAMINATION TYPE: FL barium swallow w video DATE OF EXAM: 12/05/2020 COMPARISON: NONE HISTORY: Dysphagia TECHNIQUE: Fluoroscopy. FINDINGS: Fluoroscopic guidance was provided for the procedure performed in conjunction with the [facility] pathology department. Please see complete report forthcoming from the Speech Pathology departmen t. Various consistencies from thin liquid to solids were administered. Fluoroscopy time 1 minute 27 seconds. Number of images: 0. No aspiration or penetration was evident. No significant pooling was observed in the vallecula. There was normal propulsion of the bolus. IMPRESSION: 1. Normal modified barium swallow.
== END | disposition home or self-care (01) ==
LOC: RADFLMAIN 10:51
PROVIDERS: ATTEND Otolaryngology
DX: R13.10 Dysphagia, unspecified (principal)
CPT/HCPCS: 74230

== ENCOUNTER → 2021-01-17 | Outpatient (CLI) | payer MEDICARE, BC ==
--- NOTE | 2021-01-18 11:52 | US ---
EXAMINATION TYPE: US abdomen limited DATE OF EXAM: 01/17/2021 COMPARISON: NONE CLINICAL HISTORY: D64.9 anemia D73.9 splenic pain. Elderly patient feel on his left side recently, no pain at time of exam, anemic EXAM MEASUREMENTS: Spleen: 8.5 cm Left Kidney: 10.5 x 4.7 x 6.4 cm 1. Spleen: multiple granulomas, wnl 2. Left Kidney: wnl IMPRESSION: Splenic granulomas.
== END | disposition home or self-care (01) ==
LOC: RADUSWWP 09:38
PROVIDERS: ATTEND Family Medicine
DX: D64.9 Anemia, unspecified (principal); D73.89 Other diseases of spleen
CPT/HCPCS: 76705

== ENCOUNTER 2021-03-16 08:25 | Day surgery (SDC) | payer MEDICARE, BC ==
[2021-03-15 09:20] VITALS: BMI 31.0
[~2021-03-16 08:25] MED LIST: LACTATED RINGERS 1,000 ML IV SCH
[2021-03-16 08:48] VITALS: TEMP 97.6
--- NOTE | 2021-03-16 09:50 | P.PCN ---
Date of Procedure: 03/16/21 Procedure(s) Performed: BRIEF HISTORY: Patient is a 85-year-old pleasant male scheduled for an elective colonoscopy as a part of screening for colorectal neoplasia. His last colonoscopy was about 10-12 years ago and was noted to have colon polyps. PROCEDURE PERFORMED: Colonoscopy. PREOPERATIVE DIAGNOSIS: Screening for colon cancer. IV sedation none. PROCEDURE: After informed consent was obtained, the patient, was brought into the endoscopy unit. Anesthesia was available for continuous monitoring. Digital rectal examination was normal. Initially the Olympus CF-160 flexible video pediatric colonoscope was then inserted in the rectum, gradually advanced into the cecum without any difficulty. Careful examination was performed as the scope was gradually being withdrawn. Ileocecal valve and the appendiceal orifice were visualized and appeared normal. Prep was excellent. Mucosa of the cecum, ascending colon, transverse colon, descending colon, sigmoid colon, and rectum appeared normal. On recent sigmoid diverticulosis seen. Retroflexion was performed in the rectum and no lesions were seen. The patient tolerated the procedure well. IMPRESSION: Normal-appearing colon from rectum to cecum with no evidence of colorectal neoplasia. Moderate sigmoid diverticulosis. RECOMMENDATIONS: Findings of this examination were discussed with the patient as well as his family. He was advised to be a high-fiber diet and take fiber supplements a regular basis..
[2021-03-16 09:54] VITALS: RESP 18
[2021-03-16 10:06] VITALS: BP 145/78; PULSE 65
== END 2021-03-16 10:31 | disposition home or self-care (01) ==
LOC: ORWHC2ENDO 08:25
PROVIDERS: ATTEND Internal Medicine Gastroenterology
DX: Z12.11 Encounter for screening for malignant neoplasm of colon (principal); K57.30 Diverticulosis of large intestine without perforation or abscess without bleeding; Z86.010 Personal history of colon polyps; Z79.82 Long term (current) use of aspirin; Z79.899 Other long term (current) drug therapy
CPT/HCPCS: 45378

== ENCOUNTER 2021-10-23 12:06 | Emergency (ER) | payer MEDICARE, BC ==
--- NOTE | 2021-10-23 13:32 | XR ---
EXAMINATION TYPE: XR knee limited RT DATE OF EXAM: 10/23/2021 CLINICAL HISTORY: Pain for multiple falls. TECHNIQUE: Frontal and lateral views of the right knee are obtained. COMPARISON: None. FINDINGS: There is no acute fracture/dislocation evident in the right knee. [id number] tricomp artment joint space loss. Small to moderate-size suprapatellar joint effusion. Moderate posterior art erial calcification. IMPRESSION: There is no acute fracture or dislocation in the right knee.
--- NOTE | 2021-10-23 13:33 | XR ---
EXAMINATION TYPE: XR chest 2V DATE OF EXAM: 10/23/2021 COMPARISON: Chest x-ray March 28, 2017 HISTORY: Fall injury with chest pain TECHNIQUE: Frontal and lateral views of the chest are obtained. FINDINGS: There is patchy left basilar opacity. Right lung remains clear. Mild cardiomegaly now pres ent. Multilevel spurring in the spine. IMPRESSION: Mild cardiomegaly with patchy left basilar atelectasis and/or developing infiltrate proc ess.
--- NOTE | 2021-10-23 13:36 | XR ---
EXAMINATION TYPE: XR Hip LT and AP Pelvis DATE OF EXAM: 10/23/2021 COMPARISON: NONE HISTORY: Pain after fall injury TECHNIQUE: A single AP view of the pelvis is obtained. Two views of the left hip are obtained. FINDINGS: There is no acute fracture/dislocation evident in the pelvis. Mild/moderate axial joint sp rj loss both hips. A few scattered overlying pelvic phleboliths. The symphysis is intact. Sacroiliac joints are preserved. Two views of left hip show no acute fracture or dislocation. No focal lytic or sclerotic lesion seen in the proximal left femur. The overlying soft tissue is unremarkable. IMPRESSION: There is no acute fracture or dislocation in the pelvis or left hip.
--- NOTE | 2021-10-23 14:40 | CT ---
EXAMINATION TYPE: CT hip LT wo con DATE OF EXAM: 10/23/2021 COMPARISON: Pelvic and left hepatic x-ray earlier today HISTORY: Fall, Lt hip pain CT DLP: 728.2 mGycm Automated exposure control for dose reduction was used. FINDINGS: Osseous structures are demineralized. No acute fracture or dislocation is evident. Mild to moderate a xial joint space loss with mild acetabular spurring is redemonstrated. Muscle bulk is preserved in the left thigh. No left groin hernia or adenopathy. Mild to moderate sujata rial vascular calcification. IMPRESSION: No acute fracture or dislocation of the left hip.
[2021-10-23] MEDS ORDERED: ACET/COD 300 MG/30 MG STARTER PACK 6 TAB BTL PO STA (15:05)
--- NOTE | 2021-10-23 15:06 | ED ---
Fall HPI - General Chief Complaint: Fall Stated Complaint: Fall/hip pain Time Seen by Provider: 10/23/21 12:23 Source: patient, RN notes reviewed Mode of arrival: ambulatory Limitations: no limitations - History of Present Illness Initial Comments: 86-year-old male presents emergency Department with chief complaint of falls. Patient has been dealing with a red knee over the last several months. Patient's primary most information. Patient went left hip pain after a fall this morning. Patient having worsening right knee pain. Patient states that it's is very painful to ambulate and left leg. No head injury no loss conscious. Patient has not seen orthopedics in the past for these injuries. Patient denies nausea vomiting appears chills no cough or cold-like symptoms. Patient has no focal weakness or symptoms. Patient's is followed by PCP. - Related Data Home Medications Medication Instructions Recorded Confirmed Furosemide [Lasix] 20 mg PO BID 03/15/21 10/23/21 Atorvastatin [Lipitor] 40 mg PO HS 10/23/21 10/23/21 amLODIPine [Norvasc] 5 mg PO DAILY 10/23/21 10/23/21 Allergies Allergy/AdvReac Type Severity Reaction Status Date / Time No Known Allergies Allergy Verified 10/23/21 13:29 Review of Systems ROS Statement: Those systems with pertinent positive or pertinent negative responses have been documented in the HPI. ROS Other: All systems not noted in ROS Statement are negative. Past Medical History Past Medical History: Cancer, CVA/TIA, Hyperlipidemia, Hypertension, Osteoarthritis (OA) Additional Past Medical History / Comment(s): "hx of seizure and mini stroke like episode", low hemoglobin. hx colon polyps, hx bladder cancer, "loose teeth extracted 10 days ago" History of Any Multi-Drug Resistant Organisms: None Reported Past Surgical History: Bladder Surgery Additional Past Surgical History / Comment(s): colonoscopy, "lens implant at least one eye" Past Anesthesia/Blood Transfusion Reactions: Motion Sickness Additional Past Anesthesia/Blood Transfusion Reaction / Comment(s): rare motion sickness, requests colonoscopy without anesthesia Past Psychological History: Anxiety, Depression Smoking Status: Former smoker Past Alcohol Use History: None Reported Past Drug Use History: None Reported - Past Family History Brother(s) Family Medical History: Cancer Son(s) Family Medical History: Cancer General Exam Limitations: no limitations General appearance: alert, in no apparent distress Head exam: Present: atraumatic, normocephalic, normal inspection Eye exam: Present: normal appearance, PERRL, EOMI. Absent: scleral icterus, conjunctival injection, periorbital swelling ENT exam: Present: normal exam, normal oropharynx, mucous membranes moist Neck exam: Present: normal inspection, full ROM. Absent: tenderness, meningismus, lymphadenopathy Respiratory exam: Present: normal lung sounds bilaterally. Absent: respiratory distress, wheezes, rales, rhonchi, stridor Cardiovascular Exam: Present: regular rate, normal rhythm, normal heart sounds. Absent: systolic murmur, diastolic murmur, rubs, gallop, clicks Extremities exam: Present: other (Tenderness to left hip, no shortening or rotation, neurovascular intact right knee no localized injury or tenderness.) Neurological exam: Present: alert, CN II-XII intact, reflexes normal. Absent: motor sensory deficit Course Vital Signs 10/23/21 12:08 Temperature 99.1 F Pulse Rate 81 Respiratory 16 Rate Blood Pressure 128/65 O2 Sat by Pulse 97 Oximetry Medical Decision Making - Medical Decision Making Patient's x-rays were unremarkable for acute injury. Patient did have left hip pain CT was obtained and which he does not have an acute fracture. Patient and son was updated on results patient's son feels comfortable with discharge. Disposition Clinical Impression: Fall, Contusion of left hip, Right knee pain Disposition: HOME SELF-CARE Condition: Stable Instructions (If sedation given, give patient instructions): Hip Pain (ED) Additional Instructions: Please return to the Emergency Department if symptoms worsen or any other concerns. Is patient prescribed a controlled substance at d/c from ED?: No Referrals: Alan Shcrader DO [Primary Care Provider] - 1-2 days Time of Disposition: 15:05
[2021-10-23 15:41] VITALS: BP 144/68; PULSE 80; RESP 18; TEMP 98.9
== END 2021-10-23 15:35 | disposition home or self-care (01) ==
LOC: EC 12:06
DX: S70.02XA Contusion of left hip, initial encounter (principal); M25.561 Pain in right knee; E78.5 Hyperlipidemia, unspecified; I10 Essential (primary) hypertension; Z79.899 Other long term (current) drug therapy; Z86.73 Personal history of transient ischemic attack (TIA), and cerebral infarction without residual deficits; Z87.891 Personal history of nicotine dependence; W19.XXXA Unspecified fall, initial encounter
CPT/HCPCS: 71046; 73502; 99284

== ENCOUNTER 2021-10-30 21:12 | Inpatient (IN) | payer MEDICARE, BC ==
[2021-10-30] MEDS ORDERED: ACETAMINOPHEN TAB 325 MG TAB PO STA (21:43)
--- NOTE | 2021-10-30 22:12 | ED ---
General Adult HPI - General Chief complaint: Altered Mental Status Stated complaint: Altered mental status Time Seen by Provider: 10/30/21 21:15 Source: patient, family, EMS Mode of arrival: EMS Limitations: altered mental status (Patient appears delirious) - History of Present Illness Initial comments: 's patient is an 86-year-old man who is brought to have evaluation for vomiting and diarrhea as well as having altered mental status. Most of the history is from son of the patient. He states that they had had a different breakfast than is usual for him. After that they had gone into town for a few hours and then on returning home the patient developed nausea shortly after that he was having both vomiting and diarrhea. He had a number of episodes of both of those. No hematemesis or bloody stools noted. Patient then also was confused and d isoriented. As he was not tolerating fluids and was having altered mental status, they present here for evaluation. When I interview the patient, he denies any pains. He denies dyspnea. -: hour(s) Severity scale (1-10): 0 Consistency: constant Improves with: none Worsens with: none Associated Symptoms: nausea/vomiting Treatments Prior to Arrival: none - Related Data Home Medications Medication Instructions Recorded Confirmed Atorvastatin [Lipitor] 40 mg PO HS 10/23/21 10/30/21 amLODIPine [Norvasc] 5 mg PO DAILY 10/23/21 10/30/21 Ascorbic Acid [Vitamin C] 1,000 mg PO DAILY 10/30/21 10/30/21 Aspirin EC [Ecotrin Low Dose] 81 mg PO BID PRN 10/30/21 10/30/21 Cholecalciferol [Vitamin D3 (125 125 mcg PO DAILY 10/30/21 10/30/21 Mcg = 5000 Iu)] Multivitamins, Thera [Multivitamin 1 tab PO DAILY 10/30/21 10/30/21 (formulary)] [place]-3 Fatty Acids/Fish Oil [Fish 1 cap PO DAILY 10/30/21 10/30/21 Oil 1,000 mg Softgel] Red Yeast Rice 600 mg PO DAILY 10/30/21 10/30/21 Previous Rx's Medication Instructions Recorded Furosemide [Lasix] 20 mg PO DAILY #0 11/02/21 Levofloxacin [Levaquin] 500 mg PO DAILY 5 Days #5 tab 11/02/21 Metoprolol Tartrate [Lopressor] 12.5 mg PO DAILY #30 tab 11/02/21 Pantoprazole [Protonix] 40 mg PO AC-BRKFST #30 tab 11/02/21 Allergies Allergy/AdvReac Type Severity Reaction Status Date / Time No Known Allergies Allergy Verified 10/30/21 22:12 Review of Systems ROS Statement: Those systems with pertinent positive or pertinent negative responses have been documented in the HPI. ROS Other: All systems not noted in ROS Statement are negative. Limitations: ROS unobtainable due to patients medical condition (Patient appears delirious) Constitutional: Denies: fever Respiratory: Denies: cough, dyspnea Cardiovascular: Denies: chest pain, syncope Gastrointestinal: Reports: nausea, vomiting, diarrhea. Denies: hematemesis, hematochezia Genitourinary: Denies: dysuria Skin: Denies: rash Neurological: Denies: headache Past Medical History Past Medical History: Cancer, CVA/TIA, Hyperlipidemia, Hypertension, Osteoarthritis (OA) Additional Past Medical History / Comment(s): "hx of seizure and mini stroke like episode", low hemoglobin. hx colon polyps, hx bladder cancer, "loose teeth extracted 10 days ago" History of Any Multi-Drug Resistant Organisms: None Reported Past Surgical History: Bladder Surgery Additional Past Surgical History / Comment(s): colonoscopy, "lens implant at least one eye" Past Anesthesia/Blood Transfusion Reactions: Motion Sickness Additional Past Anesthesia/Blood Transfusion Reaction / Comment(s): rare motion sickness, requests colonoscopy without anesthesia Past Psychological History: Anxiety, Depression Smoking Status: Former smoker Past Alcohol Use History: None Reported Past Drug Use History: None Reported - Past Family History Brother(s) Family Medical History: Cancer Son(s) Family Medical History: Cancer General Exam Limitations: altered mental status General appearance: alert, other (Patient is somnolent but does arouse. He does appear to be delirious.) Head exam: Present: atraumatic, normocephalic Eye exam: Present: normal appearance ENT exam: Present: mucous membranes dry Neck exam: Present: normal inspection Respiratory exam: Present: normal lung sounds bilaterally. Absent: respiratory distress, wheezes, rales, rhonchi, stridor Cardiovascular Exam: Present: regular rate, normal rhythm, normal heart sounds. Absent: systolic murmur, diastolic murmur, rubs, gallop GI/Abdominal exam: Present: soft, tenderness (Left lower quadrant.). Absent: distended, guarding, rebound, rigid, mass, pulsatile mass, hernia Extremities exam: Present: normal inspection, normal capillary refill. Absent: pedal edema, calf tenderness Back exam: Present: normal inspection. Absent: CVA tenderness (R), CVA tenderness (L) Neurological exam: Present: alert Skin exam: Present: warm, dry, intact, normal color. Absent: rash Course Vital Signs 10/30/21 10/30/21 10/30/21 21:29 22:48 23:00 Temperature 102 F H 99.3 F Pulse Rate 92 86 Respiratory 20 20 Rate Blood Pressure 136/66 121/62 O2 Sat by Pulse 94 L 98 Oximetry 10/31/21 10/31/21 10/31/21 00:00 01:00 02:00 Temperature Pulse Rate 90 82 80 Respiratory 16 16 18 Rate Blood Pressure 114/61 95/56 O2 Sat by Pulse 96 97 Oximetry 10/31/21 10/31/21 10/31/21 03:00 04:00 06:00 Temperature 97.5 F L Pulse Rate 82 77 72 Respiratory 16 Rate Blood Pressure 113/60 110/68 117/64 O2 Sat by Pulse 98 97 Oximetry 10/31/21 10/31/21 10/31/21 08:51 12:11 13:58 Temperature 100.4 F H 99.0 F Pulse Rate 74 75 70 Respiratory 18 18 20 Rate Blood Pressure 116/63 126/62 121/68 O2 Sat by Pulse 97 96 95 Oximetry EKG Findings - EKG Results: EKG: interpreted by ERMWhitney, sinus rhythm (Rate 93 bpm), normal axis, normal QRS - Blocks, [place], Hypertrophy, ST Abn: Repolarization changes or abnormalities: nonspecific abnormality, ST segment, and/or T wave Procedures - Sepsis Sepsis Focused Exam #1 Sepsis Focused Exam Date: 10/31/21 Sepsis Focused Exam Time: 03:00 Sepsis Focused Exam Complete: Yes Vital Signs & RN Notes Reviewed: Yes Capillary Refill: < 2 Seconds: Fingers Peripheral Pulses: Normal: Radial (R) Skin Color: Flushed Respiratory Exam: normal lung sounds Cardiovascular Exam: regular rate, normal rhythm, normal heart sounds Medical Decision Making - Lab Data Result diagrams: 10/30/21 22:10 10/30/21 22:10 Lab Results 10/30/21 10/30/21 10/30/21 Range/Units 22:10 22:10 22:10 WBC 9.8 (3.8-10.6) k/uL RBC 3.12 L (4.30-5.90) m/uL Hgb 10.7 L (13.0-17.5) gm/dL Hct 31.7 L (39.0-53.0) % MCV 101.9 H (80.0-100.0) fL MCH 34.4 (25.0-35.0) pg MCHC 33.8 (31.0-37.0) g/dL RDW 13.5 (11.5-15.5) % Plt Count 250 (150-450) k/uL MPV 7.4 Neutrophils % 96 % Lymphocytes % 1 % Monocytes % 2 % Eosinophils % 0 % Basophils % 0 % Neutrophils # 9.4 H (1.3-7.7) k/uL Lymphocytes # 0.1 L (1.0-4.8) k/uL Monocytes # 0.2 (0-1.0) k/uL Eosinophils # 0.0 (0-0.7) k/uL Basophils # 0.0 (0-0.2) k/uL Macrocytosis Slight PT 10.8 (9.0-12.0) sec INR 1.0 (<1.2) APTT 22.8 (22.0-30.0) sec Sodium 132 L (137-145) mmol/L Potassium 4.6 (3.5-5.1) mmol/L Chloride 101 (98-107) mmol/L Carbon Dioxide 22 (22-30) mmol/L Anion Gap 9 mmol/L BUN 32 H (9-20) mg/dL Creatinine 1.20 (0.66-1.25) mg/dL Est GFR (CKD-EPI)AfAm 62 (>60 ml/min/1.73 sqM) Est GFR (CKD-EPI)NonAf 54 (>60 ml/min/1.73 sqM) Glucose 213 H (74-99) mg/dL Lactic Ac Sepsis Rflx Plasma Lactic Acid [place] (0.7-2.0) mmol/L Calcium 9.0 (8.4-10.2) mg/dL Total Bilirubin 0.7 (0.2-1.3) mg/dL AST 27 (17-59) U/L ALT 23 (4-49) U/L Alkaline Phosphatase 62 (38-126) U/L Troponin I (0.000-0.034) ng/mL Total Protein 6.1 L (6.3-8.2) g/dL Albumin 3.4 L (3.5-5.0) g/dL Vitamin B12 (200.0-944.0) pg/mL TSH (0.350-5.500) uIU/mL Urine Color Urine Appearance (Clear) Urine pH (5.0-8.0) Ur Specific [place] (1.001-1.035) Urine Protein (Negative) Urine Glucose (UA) (Negative) Urine Ketones (Negative) Urine Blood (Negative) Urine Nitrite (Negative) Urine Bilirubin (Negative) Urine Urobilinogen (<2.0) mg/dL Ur Leukocyte Esterase (Negative) Urine RBC (0-5) /hpf Urine WBC (0-5) /hpf Ur Squamous Epith Cells (0-4) /hpf Urine Mucus (None) /hpf Coronavirus (PCR) (Not Detectd) 10/30/21 10/30/21 10/30/21 Range/Units 22:10 22:10 22:10 WBC (3.8-10.6) k/uL RBC (4.30-5.90) m/uL Hgb (13.0-17.5) gm/dL Hct (39.0-53.0) % MCV (80.0-100.0) fL MCH (25.0-35.0) pg MCHC (31.0-37.0) g/dL RDW (11.5-15.5) % Plt Count (150-450) k/uL MPV Neutrophils % % Lymphocytes % % Monocytes % % Eosinophils % % Basophils % % Neutrophils # (1.3-7.7) k/uL Lymphocytes # (1.0-4.8) k/uL Monocytes # (0-1.0) k/uL Eosinophils # (0-0.7) k/uL Basophils # (0-0.2) k/uL Macrocytosis PT (9.0-12.0) sec INR (<1.2) APTT (22.0-30.0) sec Sodium (137-145) mmol/L Potassium (3.5-5.1) mmol/L Chloride (98-107) mmol/L Carbon Dioxide (22-30) mmol/L Anion Gap mmol/L BUN (9-20) mg/dL Creatinine (0.66-1.25) mg/dL Est GFR (CKD-EPI)AfAm (>60 ml/min/1.73 sqM) Est GFR (CKD-EPI)NonAf (>60 ml/min/1.73 sqM) Glucose (74-99) mg/dL Lactic Ac Sepsis Rflx Plasma Lactic Acid [place] 2.7 H* (0.7-2.0) mmol/L Calcium (8.4-10.2) mg/dL Total Bilirubin (0.2-1.3) mg/dL AST (17-59) U/L ALT (4-49) U/L Alkaline Phosphatase (38-126) U/L Troponin I 0.113 H* (0.000-0.034) ng/mL Total Protein (6.3-8.2) g/dL Albumin (3.5-5.0) g/dL Vitamin B12 (200.0-944.0) pg/mL TSH (0.350-5.500) uIU/mL Urine Color Urine Appearance (Clear) Urine pH (5.0-8.0) Ur Specific [place] (1.001-1.035) Urine Protein (Negative) Urine Glucose (UA) (Negative) Urine Ketones (Negative) Urine Blood (Negative) Urine Nitrite (Negative) Urine Bilirubin (Negative) Urine Urobilinogen (<2.0) mg/dL Ur Leukocyte Esterase (Negative) Urine RBC (0-5) /hpf Urine WBC (0-5) /hpf Ur Squamous Epith Cells (0-4) /hpf Urine Mucus (None) /hpf Coronavirus (PCR) Not Detected (Not Detectd) 10/30/21 10/30/21 10/30/21 Range/Units 22:10 22:10 23:00 WBC (3.8-10.6) k/uL RBC (4.30-5.90) m/uL Hgb (13.0-17.5) gm/dL Hct (39.0-53.0) % MCV (80.0-100.0) fL MCH (25.0-35.0) pg MCHC (31.0-37.0) g/dL RDW (11.5-15.5) % Plt Count (150-450) k/uL MPV Neutrophils % % Lymphocytes % % Monocytes % % Eosinophils % % Basophils % % Neutrophils # (1.3-7.7) k/uL Lymphocytes # (1.0-4.8) k/uL Monocytes # (0-1.0) k/uL Eosinophils # (0-0.7) k/uL Basophils # (0-0.2) k/uL Macrocytosis PT (9.0-12.0) sec INR (<1.2) APTT (22.0-30.0) sec Sodium (137-145) mmol/L Potassium (3.5-5.1) mmol/L Chloride (98-107) mmol/L Carbon Dioxide (22-30) mmol/L Anion Gap mmol/L BUN (9-20) mg/dL Creatinine (0.66-1.25) mg/dL Est GFR (CKD-EPI)AfAm (>60 ml/min/1.73 sqM) Est GFR (CKD-EPI)NonAf (>60 ml/min/1.73 sqM) Glucose (74-99) mg/dL Lactic Ac Sepsis Rflx Y Plasma Lactic Acid [place] (0.7-2.0) mmol/L Calcium (8.4-10.2) mg/dL Total Bilirubin (0.2-1.3) mg/dL AST (17-59) U/L ALT (4-49) U/L Alkaline Phosphatase (38-126) U/L Troponin I (0.000-0.034) ng/mL Total Protein (6.3-8.2) g/dL Albumin (3.5-5.0) g/dL Vitamin B12 512.0 (200.0-944.0) pg/mL TSH 1.870 (0.350-5.500) uIU/mL Urine Color Urine Appearance (Clear) Urine pH (5.0-8.0) Ur Specific [place] (1.001-1.035) Urine Protein (Negative) Urine Glucose (UA) (Negative) Urine Ketones (Negative) Urine Blood (Negative) Urine Nitrite (Negative) Urine Bilirubin (Negative) Urine Urobilinogen (<2.0) mg/dL Ur Leukocyte Esterase (Negative) Urine RBC (0-5) /hpf Urine WBC (0-5) /hpf Ur Squamous Epith Cells (0-4) /hpf Urine Mucus (None) /hpf Coronavirus (PCR) (Not Detectd) 10/31/21 Range/Units 00:20 WBC (3.8-10.6) k/uL RBC (4.30-5.90) m/uL Hgb (13.0-17.5) gm/dL Hct (39.0-53.0) % MCV (80.0-100.0) fL MCH (25.0-35.0) pg MCHC (31.0-37.0) g/dL RDW (11.5-15.5) % Plt Count (150-450) k/uL MPV Neutrophils % % Lymphocytes % % Monocytes % % Eosinophils % % Basophils % % Neutrophils # (1.3-7.7) k/uL Lymphocytes # (1.0-4.8) k/uL Monocytes # (0-1.0) k/uL Eosinophils # (0-0.7) k/uL Basophils # (0-0.2) k/uL Macrocytosis PT (9.0-12.0) sec INR (<1.2) APTT (22.0-30.0) sec Sodium (137-145) mmol/L Potassium (3.5-5.1) mmol/L Chloride (98-107) mmol/L Carbon Dioxide (22-30) mmol/L Anion Gap mmol/L BUN (9-20) mg/dL Creatinine (0.66-1.25) mg/dL Est GFR (CKD-EPI)AfAm (>60 ml/min/1.73 sqM) Est GFR (CKD-EPI)NonAf (>60 ml/min/1.73 sqM) Glucose (74-99) mg/dL Lactic Ac Sepsis Rflx Plasma Lactic Acid [place] (0.7-2.0) mmol/L Calcium (8.4-10.2) mg/dL Total Bilirubin (0.2-1.3) mg/dL AST (17-59) U/L ALT (4-49) U/L Alkaline Phosphatase (38-126) U/L Troponin I (0.000-0.034) ng/mL Total Protein (6.3-8.2) g/dL Albumin (3.5-5.0) g/dL Vitamin B12 (200.0-944.0) pg/mL TSH (0.350-5.500) uIU/mL Urine Color Yellow Urine Appearance Clear (Clear) Urine pH 5.5 (5.0-8.0) Ur Specific [place] 1.017 (1.001-1.035) Urine Protein 1+ H (Negative) Urine Glucose (UA) Trace H (Negative) Urine Ketones Negative (Negative) Urine Blood Negative (Negative) Urine Nitrite Negative (Negative) Urine Bilirubin Negative (Negative) Urine Urobilinogen <2.0 (<2.0) mg/dL Ur Leukocyte Esterase Negative (Negative) Urine RBC 2 (0-5) /hpf Urine WBC 1 (0-5) /hpf Ur Squamous Epith Cells <1 (0-4) /hpf Urine Mucus Rare H (None) /hpf Coronavirus (PCR) (Not Detectd) Disposition Clinical Impression: Sepsis, NSTEMI (non-ST elevated myocardial infarction), Abdominal pain Disposition: ADMITTED IP TO THIS HOSP Condition: Serious Is patient prescribed a controlled substance at d/c from ED?: No
[2021-10-30] MEDS: SODIUM CHLORIDE 0.9% 500 ML 500 ML IV SCH ×4 (22:18→23:48)
[2021-10-30 22:38] LABS: Basophils % (A) 0 %; Eosinophils % (A) 0 %; HCT 31.7 % (39.0-53.0); HGB 10.7 gm/dL (13.0-17.5); Lymphocytes # (A) 0.1 k/uL (1.0-4.8); Lymphocytes % (A) 1 %; MCH 34.4 pg (25.0-35.0); MCHC 33.8 g/dL (31.0-37.0); MCV 101.9 fL (80.0-100.0); Macrocytosis Slight; Mean Platelet Volume 7.4; Monocytes # (A) 0.2 k/uL (0-1.0); Monocytes % (A) 2 %; Neutrophils # (A) 9.4 k/uL (1.3-7.7); Neutrophils % (A) 96 %; Platelet Count 250 k/uL (150-450); RBC 3.12 m/uL (4.30-5.90); RDW 13.5 % (11.5-15.5); WBC 9.8 k/uL (3.8-10.6)
[2021-10-30 22:46] LABS: Partial Thromboplastin Time 22.8 sec (22.0-30.0); Prothrombin Time 10.8 sec (9.0-12.0)
[2021-10-30 22:51] LABS: Albumin 3.4 g/dL (3.5-5.0); Potassium 4.6 mmol/L (3.5-5.1); Total Bilirubin 0.7 mg/dL (0.2-1.3); Total Protein 6.1 g/dL (6.3-8.2)
--- NOTE | 2021-10-30 22:59 | CT ---
EXAMINATION TYPE: CT abdomen pelvis wo con DATE OF EXAM: 10/30/2021 COMPARISON: None HISTORY: abd pain CT DLP: 779.8 mGycm Automated exposure control for dose reduction was used. Images obtained from the diaphragm to the floor the pelvis with no contrast. There is some patchy atelectasis at the lung bases. No pleural effusion. Heart is slightly enlarged. There is no pericardial effusion. There are numerous calcified small granulomata throughout the liver and spleen. Gallbladder appears n ormal. The stomach is intact. There is no pancreatic mass. There is no adrenal mass. Kidneys have normal size and contour. There is no hydronephrosis. There is 2 mm calculus anterior left kidney. The ureters are not dilated. There is no retroperitoneal adenopat hy. Bladder distends smoothly. There is no inguinal hernia. There are prostatic calcifications. There is no free fluid in the pelvis. There is mild presacral edema. Appendix appears normal. There is no mesenteric edema. There is some mild stranding around the left k idney. There are scattered tiny pancreatic calcifications. There is no bowel obstruction. There is no evidence of free air. The lumbar vertebra have fairly normal alignment. There is no compression fracture. There is moderate multilevel lumbar spondylotic changes. There is multilevel lumbar bony spinal stenosis. The hip join ts are intact. IMPRESSION: Fibrotic changes and atelectasis at the lung bases. Old granulomatous disease. Mild stranding around the left kidney could relate to previous episode of obstruction. Lumbar bony spinal stenosis. Mild subcutaneous edema over the lower lumbar spine and also some mild p resacral edema.
--- NOTE | 2021-10-30 23:36 | XR ---
EXAMINATION TYPE: XR chest 2V DATE OF EXAM: 10/30/2021 COMPARISON: 10/23/2021 HISTORY: Fever TECHNIQUE: FINDINGS: Heart size is normal. There is some atelectasis and pleural reaction left lung base. No hea rt failure seen. There are no hilar masses. Bony thorax appears intact. IMPRESSION: There is some pleural reaction and atelectasis left lung base which is increased compared to recent exam.
[2021-10-31] MEDS: SODIUM CHLORIDE 0.9% 1,000 ML IV SCH ×2 (00:18→17:05)
[2021-10-31 00:51] LABS: Appearance,Urine Clear (Clear); Bilirubin,Urine Negative (Negative); Blood,Urine Negative (Negative); Color,Urine Yellow; Glucose,Urine (UA) Trace (Negative); Ketones,Urine Negative (Negative); Leukocyte Esterase,Urine Negative (Negative); Mucus,Urine Rare /hpf; Nitrite,Urine Negative (Negative); PH, Urine 5.5 (5.0-8.0); Protein,Urine 1+ (Negative); RBC,Urine 2 /hpf (0-5); Specific Gravity,Urine 1.017 (1.001-1.035); Squamous Epithelial Cell,Urine <1 /hpf (0-4); Urobilinogen,Urine <2.0 mg/dL (<2.0); WBC,Urine 1 /hpf (0-5)
[2021-10-31] MEDS ORDERED: LEVOFLOXACIN 750MG-D5W PMX 750 MG in DEXTROSE/WATER 1 150ML.BAG IVPB STA (01:10)
[2021-10-31] MEDS ORDERED: metroNIDAZOLE-NS PMX 500 MG in SALINE 1 100ML.BAG IVPB STA (01:10)
[2021-10-31] MEDS ORDERED: ASPIRIN 81 MG PO PRN (10:33)
[2021-10-31] MEDS: ACETAMINOPHEN TAB 325 MG TAB PO PRN ×2 (12:10→20:47)
--- NOTE | 2021-10-31 12:17 | P.HPIM ---
History of Present Illness H&P Date: 10/31/21 HISTORY OF PRESENT ILLNESS This is an 86-year-old male patient of Dr. Schrader with past medical history of dementia but not diagnosed with Parkinson's, hypertension, hyperlipidemia, vitamin D deficiency, history of TIA, history of bladder cancer patient's son Ajit is at the bedside and states that patient started having vomiting at 4 AM as well as diarrhea it was as if his breakfast and went through him. He states it was very severe and uncontrollable. He was noted to have mental status changes with increased confusion. Also the patient has been falling a lot, n ormally utilizes a cane for ambulation with multiple falls and follows with Dr. Oneal. Patient has dementia but has not been diagnosed with Parkinson's. He was recently in the emergency center on 10/23 after a fall with left leg pain. CAT scan of the left hip was negative for acute fracture and patient was discharged home. Patient then presented on 10/30 by ambulance. Patient was found to be febrile with a temperature of 102, heart rate in the 90s, blood pressure 136/66, pulse ox 94% on EKG was a sinus rhythm with nonspecific ST-T wave changes. WBC 9.8, hemoglobin 10.7, platelet count 250. Sodium 132, potassium 4.6, chloride 101, CO2 22, BUN 32 and creatinine 1.2. Blood sugar 213. INR 1.0. Liver function tests were normal. Lactic acid 2.7 and repeat 1.7. Troponin 0.113 and 0.4. Coronavirus PCR not detected. Urinalysis was clear nitrate and leukoesterase negative. CAT scan of the abdomen and pelvis without contrast revealed fibrotic changes and atelectasis at the lung bases. No granulomatous disease. Mild stranding around the left kidney could relate to previous episode of obstruction. Lumbar bony spinal stenosis. Mild saphenous edema over the lower lumbar spine and also some mild presacral edema. Is seen today in the emergency center waiting for a bed on the cardiac stepdown unit. Patient started on Levaquin and Flagyl on consult for Dr. Escalante from pulmonary medicine and cardiology for elevated troponins. REVIEW OF SYSTEMS Constitutional: No fever, no chills, no night sweats. No weight change. Reported weakness, Reported fatigue Reported lethargy. Reported daytime sleepiness. EENT: No headache. No blurred vision or double vision, no loss of vision. No loss of Hearing, no ringing in the ears, no dizziness. No nasal drainage or congestion. No epistaxis. No sore throat. Lungs: No shortness of breath, cough, no sputum production. No wheezing. Cardiovascular: No chest pain, no lower extremity edema. No palpitations. No paroxysmal nocturnal dyspnea. No orthopnea. No lightheadedness or dizziness. No syncopal episodes. Abdominal: No abdominal pain. Reported nausea, Reported vomiting. Reported diarrhea. No constipation. No bloody or tarry stools. Reported loss of appetite. Genitourinary: No dysuria, increased frequency, urgency. No urinary retention. Musculoskeletal: No myalgias. Reported muscle weakness, Reported gait dysfunction, Reported frequent falls. No back pain. No neck pain. Integumentary: No wounds, no lesions. No rash or pruritus. No unusual bruising. No change in hair or nails. Neurologic: No aphasia. No facial droop. No change in mentation. No head injury. No headache. No paralysis. No paresthesia. Psychiatric: No depression. No anxiety. No mood swings. Endocrine: No abnormal blood sugars. No weight change. No excessive sweating or thirst. No cold intolerance. SOCIAL HISTORY Patient was a smoker and quit 30 years ago. No alcohol abuse, illicit drug use. FAMILY HISTORY Mother at age 83 from old age. Father at age 81 from old age. Patient has 2 sisters in the past. He has one brother and 2 sons that have all been diagnosed with basal cell skin cancer. He has one daughter also diagnosed with basal cell skin cancer. PHYSICAL EXAMINATION Gen: This is an 86-year-old male. He is resting in the ER stretcher and appears to be comfortable at rest. Patient's son is at bedside. HEENT: Head is atraumatic, normocephalic. Pupils equal, round. Sclerae is anicteric. NECK: Supple. No JVD. No lymphadenopathy. No thyromegaly. LUNGS: Clear to auscultation. No wheezes or rhonchi. No intercostal retractions. HEART: Regular rate and rhythm. No murmur. ABDOMEN: Soft. Bowel sounds are present. No masses. No tenderness. EXTREMITIES: No pedal edema. No calf tenderness. NEUROLOGICAL: Patient is awake, alert and oriented to person. Generalized weakness. Cranial nerves 2 through 12 are grossly intact. ASSESSMENT AND PLAN 1. Sepsis secondary to gastroenteritis and probable aspiration pneumonia from emesis. Blood cultures in progress. 2. Gastroenteritis, most likely viral, rule out C. difficile colitis. Stool to be sent for C. difficile toxin, start clear liquid diet to advance to full liquid if tolerated,. 3. Suspected aspiration pneumonia. Patient started on Levaquin and Flagyl, pulmonary consult with Dr. Escalante. 4. Lactic acidosis secondary to sepsis, resolved. Patient is status post 3 L of IV fluid. Decrease IV fluids to 50 mL per hour. Hold Lasix. 5. Elevated troponin without chest pain. Cardiology consult. 6. Hypertension. Blood pressures have been soft. Norvasc will be resumed 5 mg daily for tomorrow with parameters, hold Lasix. 7. Hyperlipidemia. Continue Lipitor 40 mg daily. 8. Dementia. Continue to reorient patient, treat underlying medical conditions. 9. Vitamin D deficiency. Continue supplement. 10. Generalized debility, increasing weakness and gait instability. Consult with PT and OT. 11. GI prophylaxis. Protonix. 12. DVT prophylaxis. Heparin subcu. CODE STATUS: NO CODE. Patient will be admitted to the hospital for a minimum of 2 night stay. DISCHARGE PLAN TBD. Impression and plan of care have been directed as dictated by the signing physician. Breanna Gates nurse practitioner acting as scribe for signing physician. Past Medical History Past Medical History: Cancer, CVA/TIA, Hyperlipidemia, Hypertension, Osteoarthritis (OA) Additional Past Medical History / Comment(s): "hx of seizure and mini stroke like episode", low hemoglobin. hx colon polyps, hx bladder cancer, "loose teeth extracted 10 days ago" History of Any Multi-Drug Resistant Organisms: None Reported Past Surgical History: Bladder Surgery Additional Past Surgical History / Comment(s): colonoscopy, "lens implant at least one eye" Past Anesthesia/Blood Transfusion Reactions: Motion Sickness Additional Past Anesthesia/Blood Transfusion Reaction / Comment(s): rare motion sickness, requests colonoscopy without anesthesia Past Psychological History: Anxiety, Depression Smoking Status: Former smoker Past Alcohol Use History: None Reported Past Drug Use History: None Reported - Past Family History Brother(s) Family Medical History: Cancer Son(s) Family Medical History: Cancer Medications and Allergies Home Medications Medication Instructions Recorded Confirmed Type Furosemide [Lasix] 20 mg PO BID 03/15/21 10/30/21 History Atorvastatin [Lipitor] 40 mg PO HS 10/23/21 10/30/21 History amLODIPine [Norvasc] 5 mg PO DAILY 10/23/21 10/30/21 History Ascorbic Acid [Vitamin C] 1,000 mg PO DAILY 10/30/21 10/30/21 History Aspirin EC [Ecotrin Low Dose] 81 mg PO BID PRN 10/30/21 10/30/21 History Cholecalciferol [Vitamin D3 (125 125 mcg PO DAILY 10/30/21 10/30/21 History Mcg = 5000 Iu)] Multivitamins, Thera [Multivitamin 1 tab PO DAILY 10/30/21 10/30/21 History (formulary)] [place]-3 Fatty Acids/Fish Oil [Fish 1 cap PO DAILY 10/30/21 10/30/21 History Oil 1,000 mg Softgel] Red Yeast Rice 600 mg PO DAILY 10/30/21 10/30/21 History Allergies Allergy/AdvReac Type Severity Reaction Status Date / Time No Known Allergies Allergy Verified 10/30/21 22:12 Physical Exam Vitals: Vital Signs Temp Pulse Resp BP Pulse Ox 10/31/21 08:51 100.4 F H 74 18 116/63 97 10/31/21 06:00 72 16 117/64 97 10/31/21 04:00 77 110/68 10/31/21 03:00 97.5 F L 82 113/60 98 10/31/21 02:00 80 18 10/31/21 01:00 82 16 95/56 97 10/31/21 00:00 90 16 114/61 96 10/30/21 23:00 99.3 F 10/30/21 22:48 86 20 121/62 98 10/30/21 21:29 102 F H 92 20 136/66 94 L Intake and Output 10/30/21 10/31/21 10/31/21 22:59 06:59 14:59 Other: Weight 77.111 kg Results CBC & Chem 7: 10/30/21 22:10 10/30/21 22:10 Labs: Abnormal Lab Results - Last 24 Hours (Table) 10/30/21 10/30/21 10/30/21 Range/Units 22:10 22:10 22:10 RBC 3.12 L (4.30-5.90) m/uL Hgb 10.7 L (13.0-17.5) gm/dL Hct 31.7 L (39.0-53.0) % MCV 101.9 H (80.0-100.0) fL Neutrophils # 9.4 H (1.3-7.7) k/uL Lymphocytes # 0.1 L (1.0-4.8) k/uL Sodium 132 L (137-145) mmol/L BUN 32 H (9-20) mg/dL Glucose 213 H (74-99) mg/dL Plasma Lactic Acid Wyatt 2.7 H* (0.7-2.0) mmol/L Troponin I (0.000-0.034) ng/mL Total Protein 6.1 L (6.3-8.2) g/dL Albumin 3.4 L (3.5-5.0) g/dL Urine Protein (Negative) Urine Glucose (UA) (Negative) Urine Mucus (None) /hpf 10/30/21 10/31/21 10/31/21 Range/Units 22:10 00:20 04:02 RBC (4.30-5.90) m/uL Hgb (13.0-17.5) gm/dL Hct (39.0-53.0) % MCV (80.0-100.0) fL Neutrophils # (1.3-7.7) k/uL Lymphocytes # (1.0-4.8) k/uL Sodium (137-145) mmol/L BUN (9-20) mg/dL Glucose (74-99) mg/dL Plasma Lactic Acid Wyatt (0.7-2.0) mmol/L Troponin I 0.113 H* 0.400 H* (0.000-0.034) ng/mL Total Protein (6.3-8.2) g/dL Albumin (3.5-5.0) g/dL Urine Protein 1+ H (Negative) Urine Glucose (UA) Trace H (Negative) Urine Mucus Rare H (None) /hpf
--- NOTE | 2021-10-31 13:28 | P.CRDCN ---
History of Present Illness Consult date: 10/31/21 History of present illness: HISTORY OF PRESENT ILLNESS: This is a 86-year-old male with a past medical history significant for hypertension, hyperlipidemia, TIA, and bladder cancer. Patient doesn't follow with a group billing coordinator. We have been asked to see the patient in consultation for elevated troponins. Patient presented to the hospital with a chief complaint of nausea and vomiting. Patient examined at the bedside. He is confused. There is a human resources safety manager present. There is no famil present at the time of examination. He denies chest pain or pressure. Denies SOB. * EKG reveals sinus mechanism with no signs of acute ischemia * Chest xray there is some pleural reaction and atelectasis left lung base which is increased compared to recent exam * Laboratory data: WBC 9.8. Hemoglobin 10.7. Platelet count 250. Sodium 132. Potassium 4.6. BUN 32. Creatinine 1.20. Lactic acid 2.7. Repeat 1.7. Troponin 0.113. 0.400. * Current home cardiac medications include aspirin 81 mg twice a day when necessary, Norvasc 5 mg daily, Lipitor 40 mg at night, Lasix 20 mg twice a day * Most recent echocardiogram obtained in September 2020 revealed ejection fraction greater than 55%, mild MR, and mild TR * Patient underwent a stress test in November 2019 which was negative for ischemia REVIEW OF SYSTEMS: At the time of my exam: Unable to obtain thorough review of systems secondary to altered mental status PHYSICAL EXAM: VITAL SIGNS: Reviewed. GENERAL: Well-developed in no acute distress. HEENT: Head is normocephalic. Pupils are equal, round. Sclerae anicteric. Mucous membranes of the mouth are moist. Neck supple. No JVD or thyromegaly LUNGS: Respirations even and unlabored. Lungs essentially clear to auscultation bilaterally. HEART: Regular rate and rhythm. S1 and S2 heard. Soft systolic murmur noted. ABDOMEN: Soft. Nondistended. Nontender. EXTREMITIES: Normal range of motion. No clubbing or cyanosis. Peripheral pulses intact. No lower extremity edema NEUROLOGIC: Oriented x 1. ASSESSMENT: Nausea and vomiting Sepsis Possible aspiration pneumonia Abnormal troponins, no evidence of ACS, suspect secondary to infectious process Hypertension Hyperlipidemia Dementia PLAN: Obtain 2D echo to assess cardiac structure and function Resume home cardiac medications Lasix currently on hold Continue to monitor BP Continue telemetry monitoring Trend troponins Treatment of infectious process per internal medicine Further recommendations pending patient course Nurse practitioner note has been reviewed by physician. Signing provider agrees with the documented findings, assessment, and plan of care. Past Medical History Past Medical History: Cancer, CVA/TIA, Hyperlipidemia, Hypertension, Osteoarthritis (OA) Additional Past Medical History / Comment(s): "hx of seizure and mini stroke like episode", low hemoglobin. hx colon polyps, hx bladder cancer, "loose teeth extracted 10 days ago" History of Any Multi-Drug Resistant Organisms: None Reported Past Surgical History: Bladder Surgery Additional Past Surgical History / Comment(s): colonoscopy, "lens implant at least one eye" Past Anesthesia/Blood Transfusion Reactions: Motion Sickness Additional Past Anesthesia/Blood Transfusion Reaction / Comment(s): rare motion sickness, requests colonoscopy without anesthesia Past Psychological History: Anxiety, Depression Smoking Status: Former smoker Past Alcohol Use History: None Reported Past Drug Use History: None Reported - Past Family History Brother(s) Family Medical History: Cancer Son(s) Family Medical History: Cancer Medications and Allergies Home Medications Medication Instructions Recorded Confirmed Type Furosemide [Lasix] 20 mg PO BID 03/15/21 10/30/21 History Atorvastatin [Lipitor] 40 mg PO HS 10/23/21 10/30/21 History amLODIPine [Norvasc] 5 mg PO DAILY 10/23/21 10/30/21 History Ascorbic Acid [Vitamin C] 1,000 mg PO DAILY 10/30/21 10/30/21 History Aspirin EC [Ecotrin Low Dose] 81 mg PO BID PRN 10/30/21 10/30/21 History Cholecalciferol [Vitamin D3 (125 125 mcg PO DAILY 10/30/21 10/30/21 History Mcg = 5000 Iu)] Multivitamins, Thera [Multivitamin 1 tab PO DAILY 10/30/21 10/30/21 History (formulary)] [place]-3 Fatty Acids/Fish Oil [Fish 1 cap PO DAILY 10/30/21 10/30/21 History Oil 1,000 mg Softgel] Red Yeast Rice 600 mg PO DAILY 10/30/21 10/30/21 History Allergies Allergy/AdvReac Type Severity Reaction Status Date / Time No Known Allergies Allergy Verified 10/30/21 22:12 Physical Exam Vitals: Vital Signs Temp Pulse Resp BP Pulse Ox 10/31/21 12:11 75 18 126/62 96 10/31/21 08:51 100.4 F H 74 18 116/63 97 10/31/21 06:00 72 16 117/64 97 10/31/21 04:00 77 110/68 10/31/21 03:00 97.5 F L 82 113/60 98 10/31/21 02:00 80 18 10/31/21 01:00 82 16 95/56 97 10/31/21 00:00 90 16 114/61 96 10/30/21 23:00 99.3 F 10/30/21 22:48 86 20 121/62 98 10/30/21 21:29 102 F H 92 20 136/66 94 L Intake and Output 10/30/21 10/31/21 10/31/21 22:59 06:59 14:59 Other: Weight 77.111 kg Results 10/30/21 22:10 10/30/21 22:10 Cardiac Enzymes 10/30/21 10/30/21 10/31/21 Range/Units 22:10 22:10 04:02 AST 27 (17-59) U/L Troponin I 0.113 H* 0.400 H* (0.000-0.034) ng/mL Coagulation 10/30/21 Range/Units 22:10 PT 10.8 (9.0-12.0) sec APTT 22.8 (22.0-30.0) sec CBC 10/30/21 Range/Units 22:10 WBC 9.8 (3.8-10.6) k/uL RBC 3.12 L (4.30-5.90) m/uL Hgb 10.7 L (13.0-17.5) gm/dL Hct 31.7 L (39.0-53.0) % Plt Count 250 (150-450) k/uL Comprehensive Metabolic Panel 10/30/21 Range/Units 22:10 Sodium 132 L (137-145) mmol/L Potassium 4.6 (3.5-5.1) mmol/L Chloride 101 (98-107) mmol/L Carbon Dioxide 22 (22-30) mmol/L BUN 32 H (9-20) mg/dL Creatinine 1.20 (0.66-1.25) mg/dL Glucose 213 H (74-99) mg/dL Calcium 9.0 (8.4-10.2) mg/dL AST 27 (17-59) U/L ALT 23 (4-49) U/L Alkaline Phosphatase 62 (38-126) U/L Total Protein 6.1 L (6.3-8.2) g/dL Albumin 3.4 L (3.5-5.0) g/dL Current Medications Generic Name Dose Route Start Last Admin Trade Name Freq PRN Reason Stop Dose Admin Acetaminophen 650 mg 10/31/21 10:29 10/31/21 12:10 Acetaminophen Tab 325 Mg Tab PO 650 mg Q6HR PRN Administration Fever and/ or Pain Amlodipine Besylate 5 mg 11/01/21 09:00 Amlodipine 5 Mg Tab PO DAILY [facility] Aspirin 81 mg 10/31/21 10:33 Aspirin 81 Mg PO BID PRN AGITATION/CONFUSION Atorvastatin Calcium 40 mg 10/31/21 21:00 Atorvastatin 40 Mg Tab PO HS [facility] Cholecalciferol 125 mcg 11/01/21 09:00 Cholecalciferol 125 Mcg (5000 Iu) Tablet PO DAILY [facility] Heparin Sodium (Porcine) 5,000 unit 10/31/21 21:00 Heparin Sodium,Porcine/Pf 5,000 Unit/0.5 Ml Syringe SQ Q12HR RONI Levofloxacin 500 mg/ IV 100 mls @ 100 mls/hr 11/01/21 09:00 Solution IVPB Q24HR RONI Protocol Metronidazole 500 mg/ IV 100 mls @ 100 mls/hr 10/31/21 16:00 Solution IVPB Q8HR RONI Protocol Sodium Chloride 1,000 mls @ 50 mls/hr 10/31/21 12:00 Saline 0.9% IV .Q20H RONI Pantoprazole Sodium 40 mg 11/01/21 07:30 Pantoprazole 40 Mg Tablet PO AC-BRKFST [facility] Intake and Output 10/30/21 10/31/21 10/31/21 22:59 06:59 14:59 Other: Weight 77.111 kg 10/30/21 22:10 10/30/21 22:10
--- NOTE | 2021-10-31 16:57 | P.CNPUL ---
History of Present Illness Consult date: 10/31/21 Reason for consult: dyspnea, other (Sepsis) Chief complaint: Altered mental status and ongoing vomiting and diarrhea History of present illness: Patient is a 86-year-old male with baseline dementia and enzymes disease, came into the hospital with altered mental status, data predominantly obtained from the chart as patient is not able to give a detailed history, it appears that Patient was having some nausea vomiting and diarrhea started 1 day prior to coming to the hospital, was more confused and disoriented from the baseline, patient has a prior history of dyslipidemia hypertension hypertensive cardiovascular disease history of seizure or strokelike symptoms, anemia, history of bladder cancer, patient used to smoke in the past unable to quantify it, on specific questioning denies any chest pain denies any cough or sputum production denies any shortness of breath abdominal pain appears to have improved now, workup and evaluation include white cell count of 9800 with hemoglobin hematocrit 10 and 31, coags within normal limit, sodium is 132, BUN 32 creatinine is 1.2, glucose is 213, lactate acid 2.7 came down to 1.7, troponin arrival was elevated 0.113 the third troponin increased to 1.26, COVID- 19 is negative, patient had a computed tomography scan of the abdominal and pelvis, significant for a fibrotic changes in atelectasis at the lung bases, mild stranding around the left kidney was noted likely related to prior obstruction Review of Systems ROS unobtainable: due to mental status Past Medical History Past Medical History: Cancer, CVA/TIA, Hyperlipidemia, Hypertension, Osteoarthritis (OA) Additional Past Medical History / Comment(s): "hx of seizure and mini stroke like episode", low hemoglobin. hx colon polyps, hx bladder cancer, "loose teeth extracted 10 days ago" History of Any Multi-Drug Resistant Organisms: None Reported Past Surgical History: Bladder Surgery Additional Past Surgical History / Comment(s): colonoscopy, "lens implant at least one eye" Past Anesthesia/Blood Transfusion Reactions: Motion Sickness Additional Past Anesthesia/Blood Transfusion Reaction / Comment(s): rare motion sickness, requests colonoscopy without anesthesia Past Psychological History: Anxiety, Depression Smoking Status: Former smoker Past Alcohol Use History: None Reported Past Drug Use History: None Reported - Past Family History Brother(s) Family Medical History: Cancer Son(s) Family Medical History: Cancer Medications and Allergies Home Medications Medication Instructions Recorded Confirmed Type Furosemide [Lasix] 20 mg PO BID 03/15/21 10/30/21 History Atorvastatin [Lipitor] 40 mg PO HS 10/23/21 10/30/21 History amLODIPine [Norvasc] 5 mg PO DAILY 10/23/21 10/30/21 History Ascorbic Acid [Vitamin C] 1,000 mg PO DAILY 10/30/21 10/30/21 History Aspirin EC [Ecotrin Low Dose] 81 mg PO BID PRN 10/30/21 10/30/21 History Cholecalciferol [Vitamin D3 (125 125 mcg PO DAILY 10/30/21 10/30/21 History Mcg = 5000 Iu)] Multivitamins, Thera [Multivitamin 1 tab PO DAILY 10/30/21 10/30/21 History (formulary)] [place]-3 Fatty Acids/Fish Oil [Fish 1 cap PO DAILY 10/30/21 10/30/21 History Oil 1,000 mg Softgel] Red Yeast Rice 600 mg PO DAILY 10/30/21 10/30/21 History Allergies Allergy/AdvReac Type Severity Reaction Status Date / Time No Known Allergies Allergy Verified 10/30/21 22:12 Physical Exam Vitals: Vital Signs Temp Pulse Resp BP Pulse Ox 10/31/21 13:58 99.0 F 70 20 121/68 95 10/31/21 12:11 75 18 126/62 96 10/31/21 08:51 100.4 F H 74 18 116/63 97 10/31/21 06:00 72 16 117/64 97 10/31/21 04:00 77 110/68 10/31/21 03:00 97.5 F L 82 113/60 98 10/31/21 02:00 80 18 10/31/21 01:00 82 16 95/56 97 10/31/21 00:00 90 16 114/61 96 10/30/21 23:00 99.3 F 10/30/21 22:48 86 20 121/62 98 10/30/21 21:29 102 F H 92 20 136/66 94 L - Constitutional General appearance: cooperative, disheveled, mild distress - EENT Eyes: EOMI, PERRLA Ears: bilateral: normal - Neck Carotids: bilateral: upstroke normal Thyroid: bilateral: normal size - Respiratory Respiratory: bilateral: CTA - Cardiovascular Rhythm: regular Heart sounds: normal: S1, S2 - Integumentary Integumentary: normal turgor - Neurologic Neurologic: CNII-XII intact - Musculoskeletal Musculoskeletal: gait normal, generalized weakness, strength equal bilaterally - Psychiatric Psychiatric: A&O x's 3, appropriate affect, intact judgment & insight Results - Laboratory Findings CBC and BMP: 10/30/21 22:10 10/30/21 22:10 PT/INR, D-dimer PT 10.8 sec (9.0-12.0) 10/30/21 22:10 INR 1.0 (<1.2) 10/30/21 22:10 Abnormal lab findings: Abnormal Labs 10/30/21 10/30/21 10/30/21 22:10 22:10 22:10 RBC 3.12 L Hgb 10.7 L Hct 31.7 L MCV 101.9 H Neutrophils # 9.4 H Lymphocytes # 0.1 L Sodium 132 L BUN 32 H Glucose 213 H Plasma Lactic Acid Wyatt 2.7 H* Troponin I Total Protein 6.1 L Albumin 3.4 L Urine Protein Urine Glucose (UA) Urine Mucus 10/30/21 10/31/21 10/31/21 22:10 00:20 04:02 RBC Hgb Hct MCV Neutrophils # Lymphocytes # Sodium BUN Glucose Plasma Lactic Acid Wyatt Troponin I 0.113 H* 0.400 H* Total Protein Albumin Urine Protein 1+ H Urine Glucose (UA) Trace H Urine Mucus Rare H 10/31/21 14:48 RBC Hgb Hct MCV Neutrophils # Lymphocytes # Sodium BUN Glucose Plasma Lactic Acid Wyatt Troponin I 1.260 H* Total Protein Albumin Urine Protein Urine Glucose (UA) Urine Mucus - Diagnostic Findings Chest x-ray: report reviewed, image reviewed (Basal atelectasis and chronic scarring slightly more progressive compared to prior exam) Assessment and Plan Assessment: Acute non-ST segment elevated LA Sepsis likely related to gastroenteritis Elevated lactic acid likely related LA have been normalized Hypertension hypertensive cardiovascular disease Vitamin D deficiency Dyslipidemia Advanced dementia exam is dizzy Plan: Lactic acid is normalized will follow clinical course closely, observe patient on broad-spectrum antibiotics, awaiting C. difficile Deep breathing exercises incentive spirometry Increase activity as tolerated Time with Patient: Greater than 30
[2021-10-31] MEDS: metroNIDAZOLE-NS PMX 500 MG in SALINE 1 100ML.BAG IVPB SCH ×2 (17:06→23:50)
[2021-10-31] MEDS: ATORVASTATIN 40 MG TAB PO SCH (20:48)
[2021-10-31] MEDS: HEPARIN SODIUM,PORCINE/PF 5,000 UNIT/0.5 ML SYRINGE SQ SCH ×2 (20:48→20:49)
[2021-11-01] MEDS: SODIUM CHLORIDE 0.9% 1,000 ML IV SCH ×2 (05:02→16:50)
--- NOTE | 2021-11-01 07:41 | ECHOF ---
Referral Reason:LV function, abnormal trops MEASUREMENTS -------- HEIGHT: 185.4 cm WEIGHT: 77.1 kg BP: RVIDd: 3.0 cm (< 3.3) IVSd: 1.5 cm (0.6 - 1.1) LVIDd: 4.5 cm (3.9 - 5.3) LVPWd: 1.3 cm (0.6 - 1.1) IVSs: 1.9 cm LVIDs: 3.2 cm LVPWs: 1.7 cm LA Diam: 4.0 cm (2.7 - 3.8) LAESV Index (A-L): 33.79 ml/m Ao Diam: 3.6 cm (2.0 - 3.7) AV Cusp: 2.2 cm (1.5 - 2.6) MV EXCURSION: 18.395 mm (> 18.000) MV EF SLOPE: 101 mm/s (70 - 150) MV E Brent: 1.23 m/s MV DecT: 264 ms MV A Brent: 1.33 m/s MV E/A Ratio: 0.92 AV maxP.60 mmHg AV meanP.51 mmHg FINDINGS -------- Sinus rhythm. This was a technically good study. The left ventricular size is normal. There is moderate concentric left ventricular hypertrophy. O verall left ventricular systolic function is normal with, an EF between 55 - 60 %. The right ventricle is normal in size. LA is midly dilated 29-33ml/m2. The right atrium is normal in size. Interatrial and interventricular septum intact. There is mild aortic valve sclerosis. There is mild aortic stenosis present. Peak/mean gradient a cross the Aortic Valve is 20.60mmHg / 10.51mmHg. Mild mitral annular calcification present. Mild mitral regurgitation is present. The tricuspid valve appears structurally normal. Trace tricuspid regurgitation present. There is no pulmonic regurgitation present. The aortic root size is normal. Normal inferior vena cava with normal inspiratory collapse consistent with estimated right atrial pre ssure of 5 mmHg. There is no pericardial effusion. CONCLUSIONS -------- 1. There is moderate concentric left ventricular hypertrophy. 2. Overall left ventricular systolic function is normal with, an EF between 55 - 60 %. 3. LA is midly dilated 29-33ml/m2. 4. There is mild aortic valve sclerosis. 5. There is mild aortic stenosis present. 6. Peak/mean gradient across the Aortic Valve is 20.60mmHg / 10.51mmHg. 7. Mild mitral annular calcification present. 8. Mild mitral regurgitation is present. 9. Trace tricuspid regurgitation present. 10. There is no pericardial effusion. LABORATORY SECRETARY: Dena Allison RDCS
[2021-11-01] MEDS: amLODIPine 5 MG TAB PO SCH (08:44)
[2021-11-01] MEDS: CHOLECALCIFEROL 125 MCG (5000 IU) TABLET PO SCH (08:44)
[2021-11-01] MEDS: HEPARIN SODIUM,PORCINE/PF 5,000 UNIT/0.5 ML SYRINGE SQ SCH ×2 (08:45→20:38)
[2021-11-01] MEDS: PANTOPRAZOLE 40 MG TABLET PO SCH (09:16)
[2021-11-01] MEDS: METOPROLOL TARTRATE 12.5 MG TAB PO SCH (09:17)
[2021-11-01] MEDS: metroNIDAZOLE-NS PMX 500 MG in SALINE 1 100ML.BAG IVPB SCH ×3 (09:22→23:14)
--- NOTE | 2021-11-01 12:26 | P.PN ---
Subjective Progress Note Date: 11/01/21 HISTORY OF PRESENT ILLNESS: This is a 86-year-old male with a past medical history significant for hypertension, hyperlipidemia, TIA, and bladder cancer. Patient doesn't follow with a coordinator cardiopulmonary services. We have been asked to see the patient in consultation for elevated troponins. Patient presented to the hospital with a chief complaint of nausea and vomiting. Patient examined at the bedside. He is confused. There is a safety clothing and equipment developer present. There is no famil present at the time of examination. He denies chest pain or pressure. Denies SOB. * EKG reveals sinus mechanism with no signs of acute ischemia * Chest xray there is some pleural reaction and atelectasis left lung base which is increased compared to recent exam * Laboratory data: WBC 9.8. Hemoglobin 10.7. Platelet count 250. Sodium 132. Potassium 4.6. BUN 32. Creatinine 1.20. Lactic acid 2.7. Repeat 1.7. Troponin 0.113. 0.400. * Current home cardiac medications include aspirin 81 mg twice a day when necessary, Norvasc 5 mg daily, Lipitor 40 mg at night, Lasix 20 mg twice a day * Most recent echocardiogram obtained in September 2020 revealed ejection fraction greater than 55%, mild MR, and mild TR * Patient underwent a stress test in November 2019 which was negative for ischemia 11/01/2021 Patient examined this morning at the bedside. Patient remains confused. He appears to be resting comfortably. Patient's vital signs are stable. Echocardiogram completed revealing ejection fraction 55-60%, mild aortic stenosis, mild mitral regurgitation, and trace tricuspid regurgitation. PHYSICAL EXAM: VITAL SIGNS: Reviewed. GENERAL: Well-developed in no acute distress. HEENT: Head is normocephalic. Pupils are equal, round. Sclerae anicteric. Mucous membranes of the mouth are moist. Neck supple. No JVD or thyromegaly LUNGS: Respirations even and unlabored. Lungs essentially clear to auscultation bilaterally. HEART: Regular rate and rhythm. S1 and S2 heard. Soft systolic murmur noted. ABDOMEN: Soft. Nondistended. Nontender. EXTREMITIES: Normal range of motion. No clubbing or cyanosis. Peripheral pulses intact. No lower extremity edema NEUROLOGIC: Oriented x 1. ASSESSMENT: Nausea and vomiting Sepsis Possible aspiration pneumonia Abnormal troponins, no evidence of ACS, suspect secondary to infectious process Hypertension Hyperlipidemia Dementia PLAN: Continue current cardiac medications Resume Lasix at a decreased dose of 20 mg daily Add metoprolol 12.5 mg daily No further inpatient recommendations from a cardiac standpoint We will sign off. Please reconsult if needed. Nurse practitioner note has been reviewed by physician. Signing provider agrees with the documented findings, assessment, and plan of care. Objective - Vital Signs Vital signs: Vital Signs Temp 97.9 F 11/01/21 08:10 Pulse 73 11/01/21 08:10 Resp 16 11/01/21 08:10 BP 152/68 11/01/21 08:10 Pulse Ox 95 11/01/21 08:10 Intake & Output 10/31/21 11/01/21 11/01/21 18:59 06:59 18:59 Intake Total 100 90 Output Total 100 Balance 100 -10 Weight 77.111 kg Intake: Intake, IV Titration 100 Amount metroNIDAZOLE-NS PMX 500 100 mg In Saline 1 100ml.bag @ 100 mls/hr IVPB Q8HR [facility] Rx#:[id number] Oral 90 Output: Urine 100 Other: Voiding Method Bedside Commode Bedside Commode Bedside Commode Urinal Urinal Urinal # Voids 1 2 # Bowel Movements 2 1 - Labs CBC & Chem 7: 10/30/21 22:10 10/30/21 22:10 Labs: Abnormal Lab Results - Last 24 Hours (Table) 10/31/21 10/31/21 Range/Units 14:48 17:30 Troponin I 1.260 H* 1.440 H* (0.000-0.034) ng/mL Microbiology - Last 24 Hours (Table) 10/30/21 22:10 Blood Culture - Preliminary Blood No Growth after 24 hours 10/30/21 21:55 Blood Culture - Preliminary Blood No Growth after 24 hours
[2021-11-01] MEDS: LEVOFLOXACIN 500MG-D5W PMX 500 MG in DEXTROSE/WATER 1 100ML.BAG IVPB SCH (12:39)
--- NOTE | 2021-11-01 14:51 | P.PN ---
Subjective Progress Note Date: 11/01/21 HISTORY OF PRESENT ILLNESS This is an 86-year-old male patient of Dr. Schrader with past medical history of dementia but not diagnosed with Parkinson's, hypertension, hyperlipidemia, vitamin D deficiency, history of TIA, history of bladder cancer patient's son Ajit is at the bedside and states that patient started having vomiting at 4 AM as well as diarrhea it was as if his breakfast and went through him. He states it was very severe and uncontrollable. He was noted to have mental status changes with increased confusion. Also the patient has been falling a lot, normally utilizes a cane for ambulation with multiple falls and follows with Dr. Oneal. Patient has dementia but has not been diagnosed with Parkinson's. He was recently in the emergency center on 10/23 after a fall with left leg pain. CAT scan of the left hip was negative for acute fracture and patient was discharged home. Patient then presented on 10/30 by ambulance. Patient was found to be febrile with a temperature of 102, heart rate in the 90s, blood pressure 136/66, pulse ox 94% on EKG was a sinus rhythm with nonspecific ST-T wave changes. WBC 9.8, hemoglobin 10.7, platelet count 250. Sodium 132, potassium 4.6, chloride 101, CO2 22, BUN 32 and creatinine 1.2. Blood sugar 213. INR 1.0. L iver function tests were normal. Lactic acid 2.7 and repeat 1.7. Troponin 0.113 and 0.4. Coronavirus PCR not detected. Urinalysis was clear nitrate and leukoesterase negative. CAT scan of the abdomen and pelvis without contrast revealed fibrotic changes and atelectasis at the lung bases. No granulomatous disease. Mild stranding around the left kidney could relate to previous episode of obstruction. Lumbar bony spinal stenosis. Mild saphenous edema over the lower lumbar spine and also some mild presacral edema. Is seen today in the emergency center waiting for a bed on the cardiac stepdown unit. Patient started on Levaquin and Flagyl on consult for Dr. Escalante from pulmonary medicine and cardiology for elevated troponins. 11/01: Patient is complaining of a little nausea but no vomiting, patient refused breakfast and refused cello. This is per the safety director. Patient has not had any diarrhea. He is a 1 person assist to the bathroom. Patient has been afebrile, heart rate in the 50s to 80s, blood pressure 158/74, pulse ox 93% on room air. C. difficile toxin is negative. Stool specimen to be sent for culture. Blood culture showing no growth at 24 hours. Echocardiogram reveals EF of 55-60%, mild aortic valve sclerosis, mild aortic stenosis, mild mitral regurgitation, trace to requested regurgitation. Outstretched REVIEW OF SYSTEMS Constitutional: No fever, no chills, no night sweats. No weight change. Reported weakness, Reported fatigue Reported lethargy. Reported daytime sleepiness. EENT: No headache. No blurred vision or double vision, no loss of vision. No loss of Hearing, no ringing in the ears, no dizziness. No nasal drainage or congestion. No epistaxis. No sore throat. Lungs: No shortness of breath, cough, no sputum production. No wheezing. Cardiovascular: No chest pain, no lower extremity edema. No palpitations. No p aroxysmal nocturnal dyspnea. No orthopnea. No lightheadedness or dizziness. No syncopal episodes. Abdominal: No abdominal pain. Reported nausea, Reported vomiting. Reported diarrhea. No constipation. No bloody or tarry stools. Reported loss of appetite. Genitourinary: No dysuria, increased frequency, urgency. No urinary retention. Musculoskeletal: No myalgias. Reported muscle weakness, Reported gait dysfunction, Reported frequent falls. No back pain. No neck pain. Integumentary: No wounds, no lesions. No rash or pruritus. No unusual bruising. No change in hair or nails. Neurologic: No aphasia. No facial droop. No change in mentation. No head injury. No headache. No paralysis. No paresthesia. Psychiatric: No depression. No anxiety. No mood swings. Endocrine: No abnormal blood sugars. No weight change. No excessive sweating or thirst. No cold intolerance. PHYSICAL EXAMINATION Gen: This is an 86-year-old male. He is resting in the ER stretcher and appears to be comfortable at rest. Patient's son is at bedside. HEENT: Head is atraumatic, normocephalic. Pupils equal, round. Sclerae is anicteric. NECK: Supple. No JVD. No lymphadenopathy. No thyromegaly. LUNGS: Clear to auscultation. No wheezes or rhonchi. No intercostal retr actions. HEART: Regular rate and rhythm. Systolic murmur. ABDOMEN: Soft. Bowel sounds are present. No masses. No tenderness. EXTREMITIES: No pedal edema. No calf tenderness. NEUROLOGICAL: Patient is awake, alert and oriented to person. Generalized weakness. Cranial nerves 2 through 12 are grossly intact. ASSESSMENT AND PLAN 1. Sepsis secondary to gastroenteritis and probable aspiration pneumonia from emesis. Blood cultures in progress. 2. Gastroenteritis, most likely viral, ruled out C. difficile colitis. Stool to be sent for culture, full liquid if tolerated. 3. Suspected aspiration pneumonia. Patient started on Levaquin and Flagyl, pulmonary consult with Dr. Escalante. 4. Lactic acidosis secondary to sepsis, resolved. Patient is status post 3 L of IV fluid. Decrease IV fluids to 50 mL per hour. Hold Lasix. 5. Elevated troponin without chest pain. Cardiology consult. 6. Hypertension. Blood pressures have been soft. Norvasc will be resumed 5 mg daily for tomorrow with parameters, hold Lasix. 7. Hyperlipidemia. Continue Lipitor 40 mg daily. 8. Dementia. Continue to reorient patient, treat underlying medical conditions. 9. Vitamin D deficiency. Continue supplement. 10. Generalized debility, increasing weakness and gait instability. Consult with PT and OT. 11. GI prophylaxis. Protonix. 12. DVT prophylaxis. Heparin subcu. CODE STATUS: NO CODE. DISCHARGE PLAN TBD. Consult with PT and OT added. Impression and plan of care have been directed as dictated by the signing physician. Breanna Gates nurse practitioner acting as scribe for signing physician. Objective - Vital Signs Vital signs: Vital Signs Temp 97.9 F 11/01/21 08:10 Pulse 73 11/01/21 08:10 Resp 16 11/01/21 08:10 BP 152/68 11/01/21 08:10 Pulse Ox 95 11/01/21 08:10 Intake & Output 10/31/21 11/01/21 11/01/21 18:59 06:59 18:59 Intake Total 100 90 Balance 100 90 Weight 77.111 kg Intake: Intake, IV Titration 100 Amount metroNIDAZOLE-NS PMX 500 100 mg In Saline 1 100ml.bag @ 100 mls/hr IVPB Q8HR [facility] Rx#:[id number] Oral 90 Other: Voiding Method Bedside Commode Bedside Commode Urinal Urinal # Voids 1 2 # Bowel Movements 2 1 - Labs CBC & Chem 7: 10/30/21 22:10 10/30/21 22:10 Labs: Abnormal Lab Results - Last 24 Hours (Table) 10/31/21 10/31/21 Range/Units 14:48 17:30 Troponin I 1.260 H* 1.440 H* (0.000-0.034) ng/mL Microbiology - Last 24 Hours (Table) 10/30/21 22:10 Blood Culture - Preliminary Blood No Growth after 24 hours 10/30/21 21:55 Blood Culture - Preliminary Blood No Growth after 24 hours
[2021-11-01] MEDS: FUROSEMIDE 20 MG TAB PO SCH (16:39)
[2021-11-01] MEDS: ATORVASTATIN 40 MG TAB PO SCH (20:37)
[2021-11-01] MEDS: ACETAMINOPHEN TAB 325 MG TAB PO PRN (20:39)
[2021-11-01] MEDS ORDERED: MELATONIN 3 MG TABLET PO SCH (21:00)
[2021-11-02] MEDS: SODIUM CHLORIDE 0.9% 1,000 ML IV SCH (05:08)
[2021-11-02] MEDS: PANTOPRAZOLE 40 MG TABLET PO SCH (06:11)
[2021-11-02] MEDS: METOPROLOL TARTRATE 12.5 MG TAB PO SCH (08:13)
[2021-11-02] MEDS: metroNIDAZOLE-NS PMX 500 MG in SALINE 1 100ML.BAG IVPB SCH (08:13)
[2021-11-02] MEDS: amLODIPine 5 MG TAB PO SCH (08:13)
[2021-11-02] MEDS: HEPARIN SODIUM,PORCINE/PF 5,000 UNIT/0.5 ML SYRINGE SQ SCH (08:14)
[2021-11-02] MEDS: CHOLECALCIFEROL 125 MCG (5000 IU) TABLET PO SCH (08:14)
[2021-11-02] MEDS: FUROSEMIDE 20 MG TAB PO SCH (08:14)
[2021-11-02] MEDS: LEVOFLOXACIN 500MG-D5W PMX 500 MG in DEXTROSE/WATER 1 100ML.BAG IVPB SCH (08:15)
[2021-11-02 08:26] VITALS: RESP 16
--- NOTE | 2021-11-02 12:10 | P.DS ---
Providers Date of admission: 10/31/21 01:04 Expected date of discharge: 11/02/21 Attending physician: Yari Mcpherson Consults: 10/31/21 01:09 Consult Physician Routine Consulting Provider: Power Escalante Consult Reason/Comments: sepsis Do you want consulting provider notified?: Yes Primary care physician: [facility] Course: HISTORY OF PRESENT ILLNESS This is an 86-year-old male patient of Dr. Schrader with past medical history of dementia but not diagnosed with Parkinson's, hypertension, hyperlipidemia, vitamin D deficiency, history of TIA, history of bladder cancer patient's son Ajit is at the bedside and states that patient started having vomiting at 4 AM as well as diarrhea it was as if his breakfast and went through him. He states it was very severe and uncontrollable. He was noted to have mental status changes with increased confusion. Also the patient has been falling a lot, normally utilizes a cane for ambulation with multiple falls and follows with Dr. Oneal. Patient has dementia but has not been diagnosed with Parkinson's. He was recently in the emergency center on 10/23 after a fall with left leg pain. CAT scan of the left hip was negative for acute fracture and patient was discharged home. Patient then presented on 10/30 by ambulance. Patient was found to be febrile with a temperature of 102, heart rate in the 90s, blood pressure 136/66, pulse ox 94% on EKG was a sinus rhythm with nonspecific ST-T wave changes. WBC 9.8, hemoglobin 10.7, platelet count 250. Sodium 132, potassium 4.6, chloride 101, CO2 22, BUN 32 and creatinine 1.2. Blood sugar 213. INR 1.0. Liver function tests were normal. Lactic acid 2.7 and repeat 1.7. Troponin 0.113 and 0.4. Coronavirus PCR not detected. Urinalysis was clear nitrate and leukoesterase negative. CAT scan of the abdomen and pelvis without contrast revealed fibrotic changes and atelectasis at the lung bases. No granulomatous disease. Mild stranding around the left kidney could relate to previous episode of obstruction. Lumbar bony spinal stenosis. Mild saphenous edema over the lower lumbar spine and also some mild presacral edema. Is seen today in the emergency center waiting for a bed on the cardiac stepdown unit. Patient started on Levaquin and Flagyl on consult for Dr. Escalante from pulmonary medicine and cardiology for elevated troponins. 11/01: Patient is complaining of a little nausea but no vomiting, patient refused breakfast and refused cello. This is per the manager food safety. Patient has not had any diarrhea. He is a 1 person assist to the bathroom. Patient has been afebrile, heart rate in the 50s to 80s, blood pressure 158/74, pulse ox 93% on room air. C. difficile toxin is negative. Stool specimen to be sent for culture. Blood culture showing no growth at 24 hours. Echocardiogram reveals EF of 55-60%, mild aortic valve sclerosis, mild aortic stenosis, mild mitral regurgitation, trace to requested regurgitation. 11/02: Patient has not had a bowel movement in greater than 24 hours, no nausea or vomiting. Diet will be advanced to heart healthy. He has been afebrile, heart rate in the 70s and 80s, blood pressure 160/79 and pulse ox 95% on room air. Consult with speech therapy added to evaluate for aspiration. Patient is continued on Levaquin and Flagyl. oh cultures are in progress. Cardiology has signed off this case. a shunt has been seen by speech therapy and no sign of aspiration was noted, recommendations for regular diet and thin liquids. Discharge plan is to return home without home care, family refused home care. Patient is supervised 24h/7. DISCHARGE DIAGNOSES 1. Sepsis secondary to gastroenteritis and probable aspiration pneumonia from emesis. 2. Gastroenteritis, most likely viral, ruled out C. difficile colitis. 3. Suspected aspiration pneumonia. 4. Lactic acidosis secondary to sepsis, resolved. 5. Elevated troponin without chest pain. 6. Hypertension. 7. Hyperlipidemia. 8. Dementia. 9. Vitamin D deficiency. 10. Generalized debility, increasing weakness and gait instability. DISCHARGE PLAN Home with 24h care. Greater than 35 minutes was utilized and coordinating patient's discharge. Impression and plan of care have been directed as dictated by the signing physician. Breanna Gates nurse practitioner acting as scribe for signing physician. Plan - Discharge Summary Discharge Rx Participant: No New Discharge Prescriptions: New Metoprolol Tartrate [Lopressor] 12.5 mg PO DAILY #30 tab Pantoprazole [Protonix] 40 mg PO AC-BRKFST #30 tab Levofloxacin [Levaquin] 500 mg PO DAILY 5 Days #5 tab Continue amLODIPine [Norvasc] 5 mg PO DAILY Atorvastatin [Lipitor] 40 mg PO HS Cholecalciferol [Vitamin D3 (125 Mcg = 5000 Iu)] 125 mcg PO DAILY Aspirin EC [Ecotrin Low Dose] 81 mg PO BID PRN PRN Reason: AGGITATION/CONFUSION Ascorbic Acid [Vitamin C] 1,000 mg PO DAILY Red Yeast Rice 600 mg PO DAILY [place]-3 Fatty Acids/Fish Oil [Fish Oil 1,000 mg Softgel] 1 cap PO DAILY Multivitamins, Thera [Multivitamin (formulary)] 1 tab PO DAILY Changed Furosemide [Lasix] 20 mg PO DAILY #0 Discharge Medication List Atorvastatin [Lipitor] 40 mg PO HS 10/23/21 [History] amLODIPine [Norvasc] 5 mg PO DAILY 10/23/21 [History] Ascorbic Acid [Vitamin C] 1,000 mg PO DAILY 10/30/21 [History] Aspirin EC [Ecotrin Low Dose] 81 mg PO BID PRN 10/30/21 [History] Cholecalciferol [Vitamin D3 (125 Mcg = 5000 Iu)] 125 mcg PO DAILY 10/30/21 [History] Multivitamins, Thera [Multivitamin (formulary)] 1 tab PO DAILY 10/30/21 [History] [place]-3 Fatty Acids/Fish Oil [Fish Oil 1,000 mg Softgel] 1 cap PO DAILY 10/30/21 [History] Red Yeast Rice 600 mg PO DAILY 10/30/21 [History] Furosemide [Lasix] 20 mg PO DAILY #0 11/02/21 [Rx] Levofloxacin [Levaquin] 500 mg PO DAILY 5 Days #5 tab 11/02/21 [Rx] Metoprolol Tartrate [Lopressor] 12.5 mg PO DAILY #30 tab 11/02/21 [Rx] Pantoprazole [Protonix] 40 mg PO AC-BRKFST #30 tab 11/02/21 [Rx] Follow up Appointment(s)/Referral(s): Alan Schrader DO [Primary Care Provider] - 1 Week Discharge Disposition: HOME SELF-CARE
--- NOTE | 2021-11-02 12:34 | P.PN ---
Subjective Progress Note Date: 11/02/21 Principal diagnosis: Acute non-ST segment elevated IL Sepsis likely related to gastroenteritis Elevated lactic acid likely related IL have been normalized Hypertension hypertensive cardiovascular disease Vitamin D deficiency Dyslipidemia Advanced dementia exam is dizzy 11/02/2021, patient seen eval examined during the rounds labs reviewed medications reviewed care plan discussed overall respiratory status significantly improved denies any chest pain denies any cough or sputum production, patient is being planned for discharge will recommend follow-up in outpatient basis Patient is a 86-year-old male with baseline dementia and enzymes disease, came into the hospital with altered mental status, data predominantly obtained from the chart as patient is not able to give a detailed history, it appears that Patient was having some nausea vomiting and diarrhea started 1 day prior to coming to the hospital, was more confused and disoriented from the baseline, patient has a prior history of dyslipidemia hypertension hypertensive cardiovascular disease history of seizure or strokelike symptoms, anemia, history of bladder cancer, patient used to smoke in the past unable to quantify it, on specific questioning denies any chest pain denies any cough or sputum production denies any shortness of breath abdominal pain appears to have improved now, workup and evaluation include white cell count of 9800 with hemoglobin hematocrit 10 and 31, coags within normal limit, sodium is 132, BUN 32 creatinine is 1.2, glucose is 213, lactate acid 2.7 came down to 1.7, troponin arrival was elevated 0.113 the third troponin increased to 1.26, COVID- 19 is negative, patient had a computed tomography scan of the abdominal and pelvis, significant for a fibrotic changes in atelectasis at the lung bases, mild stranding around the left kidney was noted likely related to prior obs truction Objective - Vital Signs Vital signs: Vital Signs Temp 98.7 F 11/02/21 08:21 Pulse 82 11/02/21 08:21 Resp 16 11/02/21 08:21 BP 168/79 11/02/21 08:21 Pulse Ox 95 11/02/21 08:21 Intake & Output 11/01/21 11/02/21 11/02/21 18:59 06:59 18:59 Intake Total 690 240 Output Total 500 600 Balance 190 -600 240 Intake: Intake, IV Titration 600 Amount Levofloxacin 500Mg-D5w 100 Pmx 500 mg In Dextrose/ Water 1 100ml.bag @ 100 mls/hr IVPB Q24HR [facility] Rx# :[id number] Sodium Chloride 0.9% 1, 400 000 ml @ 50 mls/hr IV . Q20H [facility] Rx#:[id number] metroNIDAZOLE-NS PMX 500 100 mg In Saline 1 100ml.bag @ 100 mls/hr IVPB Q8HR [facility] Rx#:[id number] Oral 90 240 Output: Urine 500 600 Other: Voiding Method Bedside Commode Bedside Commode Urinal # Voids 2 1 - Exam - Constitutional General appearance: cooperative, disheveled, mild distress - EENT Eyes: EOMI, PERRLA Ears: bilateral: normal - Neck Carotids: bilateral: upstroke normal Thyroid: bilateral: normal size - Respiratory Respiratory: bilateral: CTA - Cardiovascular Rhythm: regular Heart sounds: normal: S1, S2 - Integumentary Integumentary: normal turgor - Neurologic Neurologic: CNII-XII intact - Musculoskeletal Musculoskeletal: gait normal, generalized weakness, strength equal bilaterally - Psychiatric Psychiatric: A&O x's 3, appropriate affect, intact judgment & insight - Labs CBC & Chem 7: 10/30/21 22:10 10/30/21 22:10 Labs: Microbiology - Last 24 Hours (Table) 10/30/21 22:10 Blood Culture - Preliminary Blood No Growth after 48 hours 10/30/21 21:55 Blood Culture - Preliminary Blood No Growth after 48 hours 11/01/21 15:30 Stool Culture - Preliminary Stool Assessment and Plan Assessment: Acute non-ST segment elevated IL Sepsis likely related to gastroenteritis, some component of aspiration pne umonitis is clear Elevated lactic acid likely related IL have been normalized Hypertension hypertensive cardiovascular disease Vitamin D deficiency Dyslipidemia Advanced dementia exam is dizzy Plan: Lactic acid is normalized will follow clinical course closely, observe patient on broad-spectrum antibiotics, patient can be switched to oral prior to discharge Deep breathing exercises incentive spirometry Increase activity as tolerated Agree with discharge planning follow-up in outpatient Time with Patient: Greater than 30
[2021-11-02 14:25] VITALS: BP 117/56; PULSE 72; TEMP 98.4
== END 2021-11-02 14:28 | disposition home or self-care (01) | DRG 871 ==
LOC: EC 21:12 → 4SSUR 10-31 01:04 → 3SCARD 10-31 04:27
PROVIDERS: ADMIT Family Medicine; ATTEND Family Medicine
DX: A41.89 Other specified sepsis (principal); I21.4 Non-ST elevation (NSTEMI) myocardial infarction; J69.0 Pneumonitis due to inhalation of food and vomit; E87.2 Acidosis; J98.11 Atelectasis; A08.4 Viral intestinal infection, unspecified; E55.9 Vitamin D deficiency, unspecified; E78.5 Hyperlipidemia, unspecified; F03.90 Unspecified dementia, unspecified severity, without behavioral disturbance, psychotic disturbance, mood disturbance, and anxiety; F32.A Depression, unspecified; Z20.822 Contact with and (suspected) exposure to COVID-19; F41.9 Anxiety disorder, unspecified; I11.9 Hypertensive heart disease without heart failure; M48.061 Spinal stenosis, lumbar region without neurogenic claudication; R29.6 Repeated falls; Z79.899 Other long term (current) drug therapy; Z85.51 Personal history of malignant neoplasm of bladder; Z86.73 Personal history of transient ischemic attack (TIA), and cerebral infarction without residual deficits; Z86.010 Personal history of colon polyps; Z87.891 Personal history of nicotine dependence; Z91.81 History of falling
CPT/HCPCS: 36415; 71046; 74176; 80053; 81001; 82607; 83605; 84443; 84484; 85025; 85610; 85730; 87040; 87045; 87046; 87324; 87635; 93005; 93306; 96361; 96365; 96366; 96367; 99285

== ENCOUNTER → 2022-06-13 | Outpatient (CLI) | payer MEDICARE, BC ==
--- NOTE | 2022-06-13 10:34 | CA ---
Transthoracic Echo Report Name: Magnus Gould Age: 86 Gender: M : 1935 Exam Date: 06/13/2022 08:31 Exam Location: [facility] Ht (in): 70 Wt (lb): 195 Ordering Physician: Alan Schrader DO Attending/Referring Phys: Thad Johnson MD [employer] Clerk Jenny Alejandro RDCS Procedure CPT: Indications: R06.02 SHORTNESS OF BREATH Cardiac Hx: Technical Quality: Fair Contrast 1: Total Dose (mL): Contrast 2: Total Dose (mL): MEASUREMENTS (Male / Female) Normal Values 2D ECHO LV Diastolic Diameter PLAX 3.9 cm 4.2 - 5.9 / 3.9 - 5.3 cm LV Systolic Diameter PLAX 2.5 cm IVS Diastolic Thickness 1.8 cm 0.6 - 1.0 / 0.6 - 0.9 cm LVPW Diastolic Thickness 1.7 cm 0.6 - 1.0 / 0.6 - 0.9 cm LV Relative Wall Thickness 0.9 RV Internal Dim ED PLAX 3.1 cm LA Volume 72.6 cm??? 18 - 58 / 22 - 52 cm??? M-MODE Aortic Root Diameter MM 3.6 cm LA Systolic Diameter MM 3.9 cm LA Ao Ratio MM 1.1 AV Cusp Separation MM 2.2 cm DOPPLER AV Peak Velocity 137.2 cm/s AV Peak Gradient 7.5 mmHg LVOT Peak Velocity 121.9 cm/s LVOT Peak Gradient 5.9 mmHg MV Area PHT 1.6 cm??? Mitral E Point Velocity 62.5 cm/s Mitral A Point Velocity 130.0 cm/s Mitral E to A Ratio 0.5 MV Deceleration Time 479.5 ms TR Peak Velocity 180.9 cm/s TR Peak Gradient 13.1 mmHg Right Ventricular Systolic Press 18.1 mmHg FINDINGS Left Ventricle Moderately increased left ventricular wall thickness. Normal left ventricular systolic function with no obvious regional wall motion abnormalities. Left ventricular ejection fraction is estimated at 55-60 %. Right Ventricle Normal right ventricular size and function. Right ventricular systolic pressure within normal limits. Right Atrium Normal right atrial size. Left Atrium Moderately increased left atrial volume. Mitral Valve No mitral stenosis. Mitral valve thickened. Mild mitral annular calcification. Mild mitral regurgitation. Aortic Valve Trileaflet aortic valve. No aortic stenosis. No aortic regurgitation. Aortic valve sclerosis. Thickened aortic valve without stenosis. Tricuspid Valve Mild tricuspid regurgitation.structurally normal tricuspid valve. Pulmonic Valve Pulmonic valve not well visualized. Pericardium No pericardial effusion. Aorta Normal size aortic root and proximal ascending aorta. CONCLUSIONS 1. Normal size and systolic function 2. Mild mitral and tricuspid regurgitation Previewed by: Dr. Leydi Del Angel MD (Electronically Signed) Final Date: 13 June 2022 10:33
--- NOTE | 2022-06-13 12:05 | NM ---
EXAMINATION TYPE: NM stress lexiscan cardiolite DATE OF EXAM: 06/13/2022 COMPARISON: Comparison study 2011 HISTORY: Shortness of breath. History of hypertension and tobacco use in the past. TECHNIQUE: After the intravenous administration of 9.56 mCi Tc 99m Sestamibi - Cardiolite resting SP ECT images acquired 55 minutes post injection. The patient received 0.4mg Lexiscan, 25.9 mCi Tc 99m Sestamibi - Stress images obtained [address] injection FINDINGS: Review of stress and rest SPECT images demonstrates no distinct perfusion abnormality. Gated analysi s shows normal wall motion with an estimated left ventricular ejection fraction of 50 %. IMPRESSION: No convincing scintigraphic evidence for reversible ischemia.
--- NOTE | 2022-06-13 12:49 | CA ---
Lexiscan Nuclear Stress Test Report Name: Magnus Gould Exam Date: 06/13/2022 09:45 Exam Location: [facility] Ht (in): 71 Wt (lb): 195 BSA: 2.09 Ordering Phys: Alan Schrader DO Referring Phys: Thad Johnson MD Technologist: Tirso Mallory Age: 86 Gender: M : 1935 Procedure CPT: Indications: R06.02 SHORTNESS OF BREATH ICD-10 Codes: Patient History: Medications: LASIX,,,,,, AMLODIPINE,,,,, Meds past 24 hrs: Pretest Chest Pain: STRESS TEST Lexiscan Protocol Exercise Duration (min:sec): 01:[address] Depressions (mm): Angina Score: Huang Score: Resting HR (bpm): 59 Peak HR (bpm): 72 Resting BP (mmHg): 153 / 81 Peak BP (mmHg): 144 / 68 MPHR: 132 Target HR: 112 % MPHR: 55 METS: 1.0 Total Dose: Peak Dose: Atropine: Double Product: 44720 BP Response: Stress Termination: INFUSION COMPLETE Stress Symptoms: NAUSEA Stress Summary: ECG ANALYSIS Resting ECG: Sinus rhythm. Normal conduction. No arrhythmias. Normal repolarization. Stress ECG: No ECG changes from baseline with Lexiscan infusion. CONCLUSIONS No ECG evidence of ischemia with Lexiscan infusion. Nuclear test results to follow. Dr. Leydi Del Angel MD (Electronically Signed) Final Date: 13 June 2022 12:49
== END | disposition home or self-care (01) ==
LOC: RADNMMAIN 08:09
PROVIDERS: ATTEND Family Medicine
DX: R06.02 Shortness of breath (principal)
CPT/HCPCS: 93017; 93306; 78452; A9500

== ENCOUNTER 2023-01-10 22:42 | Emergency (ER) | payer MEDICARE, BC ==
[2023-01-10 23:19] VITALS: TEMP 98.3
--- NOTE | 2023-01-10 23:19 | ED ---
General Adult HPI - General Stated complaint: Fall, Hip Injury, head Injury Time Seen by Provider: 01/10/23 22:53 Source: patient, EMS Mode of arrival: EMS Limitations: altered mental status - History of Present Illness Initial comments: This patient is an 87-year-old man who is brought after having reportedly having fall at home. EMS had been told that the patient had fallen and then could not get up due to right hip pain. When I interview the patient, he does not recall having a fall. He does complain of right hip pain. He is denying other symptoms. Patient does not give much other history. He declines analgesia at the initial history and physical. -: unknown Location: right, lower extremity Improves with: none Worsens with: none Associated Symptoms: denies other symptoms - Related Data Home Medications Medication Instructions Recorded Confirmed Atorvastatin [Lipitor] 40 mg PO HS 10/23/21 10/30/21 amLODIPine [Norvasc] 5 mg PO DAILY 10/23/21 10/30/21 Ascorbic Acid [Vitamin C] 1,000 mg PO DAILY 10/30/21 10/30/21 Aspirin EC [Ecotrin Low Dose] 81 mg PO BID PRN 10/30/21 10/30/21 Cholecalciferol [Vitamin D3 (125 125 mcg PO DAILY 10/30/21 10/30/21 Mcg = 5000 Iu)] Multivitamins, Thera [Multivitamin 1 tab PO DAILY 10/30/21 10/30/21 (formulary)] [place]-3 Fatty Acids/Fish Oil [Fish 1 cap PO DAILY 10/30/21 10/30/21 Oil 1,000 mg Softgel] Red Yeast Rice 600 mg PO DAILY 10/30/21 10/30/21 Previous Rx's Medication Instructions Recorded Furosemide [Lasix] 20 mg PO DAILY #0 11/02/21 Metoprolol Tartrate [Lopressor] 12.5 mg PO DAILY #30 tab 11/02/21 Pantoprazole [Protonix] 40 mg PO AC-BRKFST #30 tab 11/02/21 levoFLOXacin [Levaquin] 500 mg PO DAILY 5 Days #5 tab 11/02/21 Allergies Allergy/AdvReac Type Severity Reaction Status Date / Time No Known Allergies Allergy Verified 10/30/21 22:12 Review of Systems ROS Statement: Those systems with pertinent positive or pertinent negative responses have been documented in the HPI. ROS Other: All systems not noted in ROS Statement are negative. Limitations: ROS unobtainable due to patients medical condition Respiratory: Denies: dyspnea Cardiovascular: Denies: chest pain Gastrointestinal: Denies: abdominal pain Musculoskeletal: Reports: arthralgia (Right hip pain). Denies: back pain Neurological: Denies: headache Past Medical History Past Medical History: Cancer, CVA/TIA, Hyperlipidemia, Hypertension, Osteoarthritis (OA) Additional Past Medical History / Comment(s): "hx of seizure and mini stroke like episode", low hemoglobin. hx colon polyps, hx bladder cancer, "loose teeth extracted 10 days ago" History of Any Multi-Drug Resistant Organisms: None Reported Past Surgical History: Bladder Surgery Additional Past Surgical History / Comment(s): colonoscopy, "lens implant at least one eye" Past Anesthesia/Blood Transfusion Reactions: Motion Sickness Additional Past Anesthesia/Blood Transfusion Reaction / Comment(s): rare motion sickness, requests colonoscopy without anesthesia Past Psychological History: Anxiety, Depression Smoking Status: Former smoker Past Alcohol Use History: None Reported Past Drug Use History: None Reported - Past Family History Brother(s) Family Medical History: Cancer Son(s) Family Medical History: Cancer General Exam General appearance: alert, in no apparent distress Head exam: Present: atraumatic, normocephalic Eye exam: Present: normal appearance ENT exam: Present: mucous membranes dry Neck exam: Present: other (Cervical collar). Absent: tenderness Respiratory exam: Present: normal lung sounds bilaterally. Absent: respiratory distress, wheezes, rales, rhonchi, stridor Cardiovascular Exam: Present: regular rate, normal rhythm, normal heart sounds. Absent: systolic murmur, diastolic murmur, rubs, gallop GI/Abdominal exam: Present: soft. Absent: distended, tenderness, guarding, rebound, rigid, mass Neurological exam: Present: alert. Absent: oriented X3 (Patient is oriented only to person), motor sensory deficit Skin exam: Present: warm, dry, intact, normal color. Absent: rash Course Vital Signs 01/10/23 01/11/23 01/11/23 23:04 01:18 07:49 Temperature 98.3 F Pulse Rate 80 81 89 Respiratory 18 20 18 Rate Blood Pressure 147/67 138/69 O2 Sat by Pulse 98 99 99 Oximetry EKG Findings - EKG Results: EKG: interpreted by SARITA, sinus rhythm (Rate 74 bpm), normal axis, normal QRS - Blocks, [place], Hypertrophy, ST Abn: Repolarization changes or abnormalities: nonspecific abnormality, ST segment, and/or T wave (Moderate ST depression) Medical Decision Making - Medical Decision Making This patient is an 87-year-old man who is brought to have evaluation in relation to right hip pain after having had suspected ground-level fall. Plain imaging obtained which did not show evident injury, however the patient was unable to walk without significant pain so computed tomography scan was added. From the CT of the hip, there did appear to be hematoma source muscle for dedicated CT of the abdomen and pelvis obtained. The CT did show a moderate size hematoma source muscle. On reevaluation after analgesia, the patient is able to stand. I discussed the findings with the patient and family member, and they would like to go home. Given the patient's age, well defer to their wishes, no they're advised to return immediately if there is any further pain or any new symptoms develop. The patient did have x-rays of the right hip and pelvis which I interpreted as being negative for acute bony trauma. The patient did have CT of the right hip which I interpreted as being negative for fracture. Radiology did comment on the hematoma and therefore CT abdomen and pelvis obtained, interpreted by radiology. Was pt. sent in by a medical professional or institution ([facility], HORSE TRAINER, urgent c are, hospital, or longterm...) When possible be specific @ -[No] Did you speak to anyone other than the patient for history (EMS, parent, family, police, friend...)? What history was obtained from this source @ -[Family member present, sister with history Did you review nursing and triage notes (agree or disagree)? Why? @ -[I reviewed and agree with nursing and triage notes] Were old charts reviewed (outside hosp., previous admission, EMS record, old EKG, old radiological studies, urgent care reports/EKG's, longterm records)? Report findings @ -[No old charts were reviewed] Differential Diagnosis (chest pain, altered mental status, abdominal pain women, abdominal pain men, vaginal bleeding, weakness, fever, dyspnea, syncope, h eadache, dizziness, GI bleed, back pain, seizure, CVA, palpatations, mental health, musculoskeletal)? @ -[Differential Musculoskeletal Muscular strain, contusion, ligament sprain, fracture, arthritis, septic arthritis, bursitis, cellulitis, muscle spasm, nerve compression, DVT, arterial occlusion, herpes zoster, electrolyte abnormality, tumor.... This is not meant to be in all inclusive list EKG interpreted by me (3pts min.). @ -[As above] X-rays interpreted by me (1pt min.). @ -[As above. CT interpreted by me (1pt min.). @ -[As above U/S interpreted by me (1pt. min.). @ -[None done] What testing was considered but not performed or refused? (CT, X-rays, U/S, labs)? Why? @ -[None] What meds were considered but not given or refused? Why? @ -[None] Did you discuss the management of the patient with other professionals (carri coates i.e. , PA, HORSE TRAINER, lab, RT, psych nurse, social group worker, in store marketer, teacher, equal employment opportunity officer, casework manager)? Give summary @ -[No] Was smoking cessation discussed for >3mins.? @ -[No] Was critical care preformed (if so, how long)? @ -[No] Were there social determinants of health that impacted care today? How? (Homelessness, low income, unemployed, alcoholism, drug addiction, transp ortation, low edu. Level, literacy, decrease access to med. care, halfway, rehab)? @ -[No] Was there de-escalation of care discussed even if they declined (Discuss DNR or withdrawal of care, Hospice)? DNR status @ -[No] What co-morbidities impacted this encounter? (DM, HTN, Smoking, COPD, CAD, Cancer, CVA, ARF, Chemo, Hep., AIDS, mental health diagnosis, sleep apnea, morbid obesity)? @ -[None] Was patient admitted / discharged? Hospital course, mention meds given and route, prescriptions, significant lab abnormalities, going to OR and other pertinent info. @ -[Admission to the hospital offered, but patient and family feel he would be best in the milieu of his own home. They are encouraged to return immediately if there is any difficulty, including recurrence of pain or new symptoms, or problem with establishing follow-up Undiagnosed new problem with uncertain prognosis? @ -[No] Drug Therapy requiring intensive monitoring for toxicity (Heparin, Nitro, Insulin, Cardizem)? @ -[No] Were any procedures done? @ -[No] Diagnosis/symptom? @ -[Acute right psoas muscle hematoma Acute, or Chronic, or Acute on Chronic? @ -[default] Uncomplicated (without systemic symptoms) or Complicated (systemic symptoms)? @ -[Uncomplicated Side effects of treatment? @ -[No] Exacerbation, Progression, or Severe Exacerbation? @ -[No] Poses a threat to life or bodily function? How? (Chest pain, [place], [place], pneumonia, PE, COPD, DKA, ARF, appy, cholecystitis, CVA, Diverticulitis, Homicidal, Suicidal, threat to staff... and all critical care pts) @ -[No] - Lab Data Result diagrams: 01/10/23 22:47 01/10/23 22:47 Lab Results 01/10/23 01/10/23 01/10/23 Range/Units 22:47 22:47 22:47 WBC 8.3 (3.8-10.6) k/uL RBC 3.04 L (4.30-5.90) m/uL Hgb 9.5 L (13.0-17.5) gm/dL Hct 28.9 L (39.0-53.0) % MCV 95.2 (80.0-100.0) fL MCH 31.1 (25.0-35.0) pg MCHC 32.7 (31.0-37.0) g/dL RDW 12.8 (11.5-15.5) % Plt Count 211 (150-450) k/uL MPV 7.4 Neutrophils % 72 % Lymphocytes % 16 % Monocytes % 6 % Eosinophils % 2 % Basophils % 0 % Neutrophils # 6.0 (1.3-7.7) k/uL Lymphocytes # 1.4 (1.0-4.8) k/uL Monocytes # 0.5 (0-1.0) k/uL Eosinophils # 0.1 (0-0.7) k/uL Basophils # 0.0 (0-0.2) k/uL Sodium 130 L (137-145) mmol/L Potassium 4.5 (3.5-5.1) mmol/L Chloride 100 (98-107) mmol/L Carbon Dioxide 15 L (22-30) mmol/L Anion Gap 15 mmol/L BUN 34 H (9-20) mg/dL Creatinine 1.37 H (0.66-1.25) mg/dL Est GFR (CKD-EPI)AfAm 53 (>60 ml/min/1.73 sqM) Est GFR (CKD-EPI)NonAf 45 (>60 ml/min/1.73 sqM) Glucose 178 H (74-99) mg/dL Calcium 9.4 (8.4-10.2) mg/dL Total Bilirubin 0.2 (0.2-1.3) mg/dL AST 21 (17-59) U/L ALT 20 (4-49) U/L Alkaline Phosphatase 77 (38-126) U/L Troponin I <0.012 (0.000-0.034) ng/mL Total Protein 6.1 L (6.3-8.2) g/dL Albumin 3.6 (3.5-5.0) g/dL Disposition Clinical Impression: Fall, Nontraumatic psoas hematoma Disposition: HOME SELF-CARE Condition: Good Instructions (If sedation given, give patient instructions): Fall Prevention for Older Adults (ED), Hematoma (ED) Is patient prescribed a controlled substance at d/c from ED?: No Referrals: Alan Schrader DO [Primary Care Provider] - 1-2 days
[2023-01-10 23:24] LABS: Basophils % (A) 0 %; Eosinophils # (A) 0.1 k/uL (0-0.7); Eosinophils % (A) 2 %; HCT 28.9 % (39.0-53.0); HGB 9.5 gm/dL (13.0-17.5); Lymphocytes # (A) 1.4 k/uL (1.0-4.8); Lymphocytes % (A) 16 %; MCH 31.1 pg (25.0-35.0); MCHC 32.7 g/dL (31.0-37.0); MCV 95.2 fL (80.0-100.0); Mean Platelet Volume 7.4; Monocytes # (A) 0.5 k/uL (0-1.0); Monocytes % (A) 6 %; Neutrophils % (A) 72 %; Platelet Count 211 k/uL (150-450); RBC 3.04 m/uL (4.30-5.90); RDW 12.8 % (11.5-15.5); WBC 8.3 k/uL (3.8-10.6)
[2023-01-10 23:26] LABS: Albumin 3.6 g/dL (3.5-5.0); Calcium 9.4 mg/dL (8.4-10.2); Potassium 4.5 mmol/L (3.5-5.1); Total Bilirubin 0.2 mg/dL (0.2-1.3); Total Protein 6.1 g/dL (6.3-8.2)
--- NOTE | 2023-01-11 01:33 | XR ---
EXAM: XR Chest, 1 View CLINICAL HISTORY: ITS.REASON XR Reason: fall injury TECHNIQUE: Frontal view of the chest. COMPARISON: No relevant prior studies available. FINDINGS: Lungs: No consolidation or mass. Pleural space: No acute findings Heart: Mild cardiomegaly. Bones/joints: No acute findings. IMPRESSION: No acute cardiopulmonary process.
--- NOTE | 2023-01-11 01:33 | XR ---
EXAM: XR Pelvis Complete, 3 or More Views CLINICAL HISTORY: ITS.REASON XR Reason: fall injury TECHNIQUE: Frontal and lateral or oblique views of the pelvis. COMPARISON: No relevant prior studies available. FINDINGS: Bones/joints: No acute fracture. No dislocation. Soft tissues: Large stool impaction at the rectum. IMPRESSION: No acute findings. Large stool impaction at the rectum.
--- NOTE | 2023-01-11 01:37 | CT ---
EXAM: CT Head Without Intravenous Contrast CLINICAL HISTORY: ITS.REASON CT Reason: fall injury TECHNIQUE: Axial computed tomography images of the head/brain without intravenous contrast. CTDI is 45.2 mGy and DLP is 1133.5 mGy-cm. This CT exam was performed using one or more of the following dose reduction techniques: automated exposure control, adjustment of the mA and/or kV according to patient size, and/or use of iterative reconstruction technique. COMPARISON: No relevant prior studies available. FINDINGS: Brain: No hemorrhage, herniation, or mass effect. Chronic microvascular ischemic changes. Ventricles: No hydrocephalus. Age related cerebral volume loss. Bones/joints: Unremarkable. Soft tissues: Unremarkable. Sinuses: Unremarkable. Mastoid air cells: Clear. IMPRESSION: No acute hemorrhage, hydrocephalus, or mass effect. EXAM: CT Cervical Spine Without Intravenous Contrast CLINICAL HISTORY: ITS.REASON CT Reason: fall injury TECHNIQUE: Axial computed tomography images of the cervical spine without intravenous contrast. CTDI is 15.2 mGy and DLP is 432.3 mGy-cm. This CT exam was performed using one or more of the following dose reduction techniques: automated exposure control, adjustment of the mA and/or kV according to patient size, and/or use of iterative reconstruction technique. COMPARISON: No relevant prior studies available. FINDINGS: Vertebrae: No acute fracture of the cervical spine. Age indeterminate mild superior endplate wedging of T1 and T2. Discs/spinal canal/neural foramina: degenerative changes. Soft tissues: No prevertebral swelling. IMPRESSION: No acute fracture of the cervical spine. Age indeterminate mild superior endplate wedging of T1 and T2.
--- NOTE | 2023-01-11 03:48 | CT ---
EXAM: CT Right Lower Extremity Without Intravenous Contrast, Hip CLINICAL HISTORY: ITS.REASON CT Reason: pain, fall injury TECHNIQUE: Axial computed tomography images of the right hip without intravenous contrast. CTDI is 17.9 mGy and DLP is 656.8 mGy-cm. This CT exam was performed using one or more of the following dose reduction techniques: automated exposure control, adjustment of the mA and/or kV according to patient size, and/or use of iterative reconstruction technique. COMPARISON: No relevant prior studies available. FINDINGS: Bones/joints: No acute fracture. No dislocation. Soft tissues: Mild contusion along the right lateral hip subcutaneous tissue. Partially visualized large hematoma in the right lower quadrant of the abdomen adjacent to the psoas muscle. Severe stool impaction at the rectum. IMPRESSION: Partially visualized large hematoma in the right lower quadrant of the abdomen adjacent to the psoas muscle. Recommend CT abdomen and pelvis. No acute fracture. <MYCVCSECTION> Communications: 01/11/23 04:13 Verify Receipt Verified receipt with clerk Familia Gimenez on 01/11 04:13 (-04:00)
--- NOTE | 2023-01-11 07:35 | CT ---
EXAMINATION TYPE: CT abdomen pelvis w con CT DLP: 1947 mGycm, Automated exposure control for dose reduction was used. DATE OF EXAM: 01/11/2023 4:35 AM COMPARISON: CT abdomen pelvis most recent from CLINICAL INDICATION:Male, 87 years old with history of pelvic hematoma; TECHNIQUE: Axial CT of the abdomen and pelvis. Sagittal and coronal reformats were created on a [employer] workstation. Contrast used: 100 cc of Isovue 300 Oral contrast used: none FINDINGS: LOWER CHEST: Unremarkable ABDOMEN LIVER: Scattered calcified granulomas. GALLBLADDER AND BILE DUCTS: Unremarkable. PANCREAS: Unremarkable. SPLEEN: Scattered calcified granulomas. ADRENAL GLANDS: Unremarkable. KIDNEYS AND URETERS: No evidence of hydronephrosis or renal calculus. The ureters are unremarkable. PELVIS BLADDER: Mildly distended no evidence for bladder hematoma or abnormality. REPRODUCTIVE: Unremarkable. ABDOMEN & PELVIS STOMACH AND BOWEL: No evidence of bowel obstruction. Moderate stool within the rectum measuring up to 8.1 x 7.6 cm. PERITONEUM/RETROPERITONEUM: No evidence of pneumoperitoneum or free fluid. VASCULATURE: Mild atherosclerotic calcifications are present throughout the abdominal aorta and its b ranches. No evidence of aortic aneurysm. Mild ectasia measuring up to 2.8 cm of the intrarenal abdomi nal aorta. MUSCULOSKELETAL: No acute osseous abnormalities. Moderate disc degeneration changes are present throu ghout the thoracolumbar spine. Asymmetric thickening of the right psoas muscle suspicious for underly ing hematoma measuring 8.6 x 5.9 cm. Fat stranding changes in the right perirenal fat. Multiple left- sided rib fractures which are normal-appearing. LYMPH NODES: No gross evidence for lymphadenopathy. SOFT TISSUE/ABDOMINAL WALL: Unremarkable IMPRESSION: 1. Right psoas muscle asymmetric thickening could represent underlying intramuscular hematoma measur ing at least 8.4 x 5.9 cm no additional hematoma is visualized in the abdomen or pelvis. 2. Large stool burden within the rectum. 3. Sequela of chronic granulomatous disease involving the spleen and liver.
[2023-01-11 07:54] VITALS: BP 138/69; PULSE 89; RESP 18
== END 2023-01-11 08:41 | disposition home or self-care (01) ==
LOC: EC 22:42
DX: S70.01XA Contusion of right hip, initial encounter (principal); I10 Essential (primary) hypertension; E78.5 Hyperlipidemia, unspecified; Z79.82 Long term (current) use of aspirin; Z79.899 Other long term (current) drug therapy; Z86.73 Personal history of transient ischemic attack (TIA), and cerebral infarction without residual deficits; Z87.891 Personal history of nicotine dependence; W19.XXXA Unspecified fall, initial encounter; Y92.009 Unspecified place in unspecified non-institutional (private) residence as the place of occurrence of the external cause
CPT/HCPCS: 36415; 80053; 84484; 85025; 73502; 71045; 72125; 70450; 74177; 73700; 99285; Q9967